=== PATIENT | male | born 1955 | race Caucasian/White ===

== ENCOUNTER 2020-07-24 13:15 | Outpatient (REF) | payer OTHER, SELFPAY ==
--- NOTE | 2020-07-24 13:14 | CT_ITS ---
EXAMINATION: CT ABDOMEN AND PELVIS WITHOUT AND WITH CONTRAST CLINICAL INFORMATION: Hematuria COMPARISON: Previous CT of the abdomen and pelvis most recent November 2019 and renal and bladder ultrasound October 2019 TECHNIQUE: Multidetector volumetric imaging was performed of the abdomen and pelvis before and after the IV administration of 85 mL of Omnipaque 300 intravenous contrast. Sagittal and coronal reformatted images were obtained on the technologist's workstation. This CT examination was performed using dose optimization techniques as appropriate, variously including the following: *Automated exposure control *Adjustment of mA and/or kV according to patient size (this includes techniques or standardized protocols for targeted exams where dose is matched to indication/reason for exam; i.e. extremities or head) *Use of iterative reconstruction technique DLP: 923 mGy-cm FINDINGS: LUNG BASES: The visualized lung bases are unremarkable. LIVER, GALLBLADDER, AND BILIARY TREE: The liver is normal in size, shape, and attenuation. No focal hepatic lesion or biliary ductal dilatation is present. The gallbladder is unremarkable with no evidence of radiopaque gallstones, gallbladder wall thickening, or obvious pericholecystic inflammatory changes. PANCREAS: Unremarkable SPLEEN: Unremarkable ADRENAL GLANDS: Unremarkable KIDNEYS AND URETERS: The kidneys are normal in size, shape, and attenuation. No hydronephrosis, hydroureter, or calculi seen. There are 2 small right renal cysts, largest measuring 1 x 1.3 cm in the lower pole. The collecting systems are normal. The ureters are normal. BLADDER: The bladder is not optimally distended. There is abnormal soft tissue seen at the base of the bladder. This may be related to the prostate gland. There is slight tenting of the dome of the bladder adjacent to the sigmoid colon. No air in the bladder is seen. GASTROINTESTINAL TRACT: There is diverticulosis of the colon. Previously identified diverticulitis on November 2019 exam is no longer seen. The soft tissue and air extending to the dome of the bladder is no longer seen. The small and large bowel are otherwise unremarkable. The appendix is unremarkable. ABDOMINAL WALL: No significant hernia is appreciated. LYMPH NODES: Normal VASCULAR: There is ectasia of the lower abdominal aorta measuring 3 x 3.3 cm and bilateral common iliac arteries measuring 1.6 cm on the right and 1.9 cm on the left. PELVIC VISCERA: The prostate gland is enlarged, measuring 5 x 6 cm in AP and transverse dimension and protrudes into the base of the bladder. OSSEOUS STRUCTURES: There are degenerative changes of the spine. IMPRESSION: Small right renal cysts. Enlarged prostate gland that protrudes into the base of the bladder. There is abnormal soft tissue at the base of the bladder presumably related to the prostate gland. There is slight tenting of the superior wall of the bladder extending to the sigmoid colon. Previously seen sigmoid diverticulitis and abnormal soft tissue and air tracking to the dome of the bladder and November 2019 is no longer seen..
== END 2020-07-24 13:16 | disposition home or self-care (01) ==
LOC: HO.CT 13:15
PROVIDERS: PCP Internal Medicine; Visit Provider Urology
DX: R31.9 Hematuria, unspecified (principal)
CPT/HCPCS: 74178

== ENCOUNTER 2020-07-29 06:09 | Day surgery (SDC) | payer OTHER, SELFPAY ==
[2020-07-25 19:29] VITALS: BMI 26.3
[2020-07-29 06:52] VITALS: BP 169/85; PULSE 55; RESP 16; TEMP 36.5; O2SAT 99
[2020-07-29] MEDS: Gentamicin Sulfate/NaCl 80 MG/100 ML PIGGYBACK 100 MG IV (07:05)
[2020-07-29] MEDS: levoFLOXacin/D5W 500 MG/100 ML PIGGYBACK 100 MG IV (07:05)
--- NOTE | 2020-07-29 07:40 | MHC.SHP ---
Pre-Procedural Eval Section A The patient is an INPATIENT: No The History & Physical has been completed within 30 days and I have reviewed it.: Yes Section B Chief Complaint: Hematuria Allergies: Allergies Allergy/AdvReac Type Severity Reaction Status Date / Time No Known Allergies Allergy Verified 07/25/20 11:55 [No Known Allergies*] Plan Diagnosis/Plan: Unchanged Patient has been examined and remains a candidate for the planned procedure
--- NOTE | 2020-07-29 08:02 | P.CONAN_ITS ---
FORM[facility]LY [facility] Past Medical History Medical History BPH (benign prostatic hyperplasia) Colovesical fistula Diverticula, colon Other obstructive and reflux uropathy Peyronie disease Structural abnormality of bladder Vesical fistula Social History Social History (Updated 07/25/20 @ 11:56 by Raissa Gamble RN) Smoking Status: Never smoker Use of substances other than those prescribed or required for medical reasons: No Have you been hit, kicked, punched, or otherwise hurt by someone within the past year? If so, by whom?: No Advance Directives: No Advance Directives Information Provided: No Advance Directives on File: No Advance Directives Date on File: 07/24/20 Meds Allergies Allergy/AdvReac Type Severity Reaction Status Date / Time No Known Allergies Allergy Verified 07/25/20 11:55 [No Known Allergies*] Home Medications Medication Instructions Recorded Confirmed Type No Known Home Meds 07/25/20 07/25/20 History Exam Exam Date and Time: July 29, 2020 0802 Height,Weight and Vital Signs: Height 6 ft 2 in Weight 92.986 kg Last Vital Signs Temp 97.7 F 07/29/20 06:52 Pulse 55 07/29/20 06:52 Resp 16 07/29/20 06:52 BP 169/85 H 07/29/20 06:52 Pulse Ox 99 07/29/20 06:52 Airway Mallampati Class: II TM Dist: >3cm Neck ROM: Full Assessment and Plan Assessment Anesthesia Assessment: Anesthesia Plan Discussed and Chart Reviewed Final Anesthetic Review NPO: Yes ASA Class: II Final Preanesthetic Review: No Changes in Pt Med Stat, Meds/Allgs Chart Reviewed, Consent Obtained/Reviewed and Anes Risks/Benef Reviewed Patient Risk: Low Procedure Risk: Low Assessment/Block/Sedation in SS: Assess/Block/Sedation-SS Anesthetic Plan Anesthetic Plan: MAC: Disposition: Standard PACU
[2020-07-29 08:10] VITALS: BP 119/63; PULSE 59; RESP 16; TEMP 36.7; O2SAT 95
--- NOTE | 2020-07-29 08:11 | PM.OP ---
Brief Operative Note Date of procedure: 07/29/20 Pre-op diagnosis: hematuria Post-op diagnosis: same Procedure: cystoscopy Surgeon: Neo Ayoub III, MD Anesthesia: MAC Pathology: none sent Condition: stable Disposition: same day
[2020-07-29 08:25] VITALS: BP 156/88; PULSE 51; RESP 17; TEMP 36.7; O2SAT 98
--- NOTE | 2020-07-29 09:22 | HO.POSTANES ---
Post Anesthesia Evaluation Post Anesthesia Evaluation Vital Signs: Vital Signs Temp Pulse Resp BP Pulse Ox 07/29/20 08:25 98.1 F 51 17 156/88 H 98 07/29/20 08:10 98.1 F 59 16 119/63 95 07/29/20 06:52 97.7 F 55 16 169/85 H 99 Anesthesia: Monitored Mental Status: Awake Pain Control: Satisfactory Nausea/Vomiting: None Hydration: Adequate Anesthesia-Related Issues: No Anes. Related Issues
--- NOTE | 2021-02-13 10:47 | OP_ITS ---
SURGEON: Neo Ayoub III, MD PREOPERATIVE DIAGNOSIS: Hematuria. POSTOPERATIVE DIAGNOSIS: Hematuria. PROCEDURE PERFORMED: Cystoscopy. ESTIMATED BLOOD LOSS: None. COMPLICATIONS: None. ANESTHESIA: MAC. ASSISTANTS: SPECIMENS: None. DESCRIPTION OF PROCEDURE: The patient was taken to the operating room. After adequate anesthesia was obtained, a time-out done demonstrating correct patient and correct procedure. Following this, the patient underwent flexible cystoscopy with retroflexion. The patient had some minute areas of erythema on the left side with no . No evidence of any papillary nature to it. Appeared to be inflammation. The patient did not have a biopsy because under flexible cystoscopy we do not have the ability to biopsy through our flexible scope, although the area in question did not appear to need a biopsy. The patient otherwise had no foreign body, stones, or mucosal lesions. No sediment. Both ureteral orifices seen effluxing clear urine. The patient tolerated procedure well with no complications. The patient had bilobar hypertrophy of the prostate. MD MARINA Swanson III/MODL / [id number]
== END 2020-07-29 09:00 | disposition home or self-care (01) ==
PROVIDERS: PCP Internal Medicine; Visit Provider Urology
PROC: 0TJB8ZZ Inspection of Bladder, Via Natural or Artificial Opening Endoscopic (ICD-10-PCS; CPT 52000; principal; 2020-07-29 07:50)
DX: R31.0 Gross hematuria (principal); Q64.79 Other congenital malformations of bladder and urethra; N40.0 Benign prostatic hyperplasia without lower urinary tract symptoms; Z87.891 Personal history of nicotine dependence
CPT/HCPCS: 52000; J1580; J1956

== ENCOUNTER → 2020-08-12 08:17 | Outpatient (BNVA) | payer OTHER, SELFPAY | PROVIDERS: PCP Internal Medicine; Referring Provider Internal Medicine; Visit Provider Urology | DX: R31.0 Gross hematuria (principal); N40.0 Benign prostatic hyperplasia without lower urinary tract symptoms; N48.6 Induration penis plastica | CPT/HCPCS: 51798; 81002 ==

== ENCOUNTER → 2021-01-22 09:21 | Outpatient (BNVA) | payer OTHER, SELFPAY | PROVIDERS: PCP Internal Medicine; Visit Provider Urology | DX: N52.01 Erectile dysfunction due to arterial insufficiency (principal); N48.6 Induration penis plastica; N40.0 Benign prostatic hyperplasia without lower urinary tract symptoms | CPT/HCPCS: 51798; 81002 ==

== ENCOUNTER 2021-07-17 12:40 | Outpatient (REF) | payer OTHER, SELFPAY ==
[2021-07-17 14:37] LABS: Prostate Specific Antigen 1.91 ng/mL (<0.05-4.0)
== END 2021-07-17 12:41 | disposition home or self-care (01) ==
LOC: HO.10HDL 12:40
PROVIDERS: Visit Provider Urology
DX: N40.1 Benign prostatic hyperplasia with lower urinary tract symptoms (principal); N13.8 Other obstructive and reflux uropathy; Z12.5 Encounter for screening for malignant neoplasm of prostate
CPT/HCPCS: 36415; 84153

== ENCOUNTER → 2021-07-21 10:06 | Outpatient (BNVA) | payer OTHER, SELFPAY | PROVIDERS: PCP Internal Medicine; Visit Provider Urology ==

== ENCOUNTER 2022-01-21 10:55 | Outpatient (REF) | payer OTHER, SELFPAY ==
--- NOTE | ~2022-01-21 | XR_ITS ---
EXAMINATION: XR RIBS, RIGHT CLINICAL INFORMATION: Right rib pain COMPARISON: None TECHNIQUE: 3 views of the right ribs and one view of the chest were obtained. FINDINGS: Lungs are clear. No consolidation, pneumothorax, or pleural effusion. The cardiomediastinal silhouette and pulmonary vasculature are normal. Osseous structures are unremarkable. Ribs are intact. No fractures are identified. XR/XR ribs RT min 3V w CXR1V IMPRESSION: Unremarkable examination.
[2022-01-21 11:33] LABS: MANUAL DIFF FLAG NO
[2022-01-21 11:57] LABS: Basophils Absolute Auto 0.1 X10*3/uL (0.0-0.2); Basophils Percent Auto 1.2 % (0-2); Eosinophils Absolute Auto 0.1 X10*3/uL (0.0-0.4); Eosinophils Percent Auto 1.4 % (0-4); Hematocrit 48.1 % (42.0-52.0); Hemoglobin 16.4 g/dl (14.0-18.0); Imm Gran Abs Auto 0.03 X10*3/uL (0.00-0.03); Imm Gran Pct Auto 0.4 % (0.0-0.4); Lymphocytes Percent Auto 24.2 % (20-40); Mean Corpuscular HGB Conc 34.1 g/dl (31.0-36.0); Mean Corpuscular Hemoglobin 32.8 pg (27.0-33.0); Mean Corpuscular Volume 96.2 fL (80.0-98.0); Mean Platelet Volume 10.6 fL (9.4-12.4); Monocytes Absolute Auto 0.9 X10*3/uL (0.1-1.2); Monocytes Percent Auto 10.4 % (2-11); Neutrophils Absolute Auto 5.2 x10*3/uL (2.0-8.3); Neutrophils Percent Auto 62.4 % (45-73); Platelet Count 267 X10*3/uL (160-400); Red Cell Distribution Width 13.7 % (11.0-16.0); White Blood Count 8.4 X10*3/uL (4.8-10.8)
[2022-01-21 12:19] LABS: Alanine Aminotransferase 24 U/L (0-40); Albumin Level 4.2 g/dL (3.5-5.0); Alkaline Phosphatase 45 U/L (39-117); Anion Gap 12 (12-20); Aspartate Amino Transferase 17 U/L (5-37); Bilirubin Total 0.9 mg/dL (0.0-1.0); Blood Urea Nitrogen 18 mg/dL (9-16); Calcium 9.6 mg/dL (8.4-10.2); Carbon Dioxide 27 mmol/L (22-29); Chloride 105 mmol/L (96-108); Cholesterol 185 mg/dL; Estimated Glomerular Filt Rate > 60; Glucose Fasting 107 mg/dL (60-99); HDL Cholesterol 47 mg/dL; LDL Cholesterol Calculated 121 mg/dl; Potassium 4.4 mmol/L (3.3-5.1); Sodium 140 mmol/L (135-145); Total Protein 7.5 g/dL (6.5-8.0); Triglycerides 86 mg/dL
== END 2022-01-21 10:56 | disposition home or self-care (01) ==
LOC: HO.LAB 10:55
PROVIDERS: PCP Internal Medicine; Visit Provider Internal Medicine
DX: Z00.00 Encounter for general adult medical examination without abnormal findings (principal); N40.0 Benign prostatic hyperplasia without lower urinary tract symptoms; R07.81 Pleurodynia
CPT/HCPCS: 36415; 71101; 80053; 80061; 85025

== ENCOUNTER 2022-09-29 12:31 | Outpatient (REF) | payer OTHER, SELFPAY ==
[2022-09-29 12:45] LABS: MANUAL DIFF FLAG NO
[2022-09-29 12:52] LABS: Basophils Absolute Auto 0.1 X10*3/uL (0.0-0.2); Basophils Percent Auto 1.5 % (0-2); Eosinophils Absolute Auto 0.2 X10*3/uL (0.0-0.4); Eosinophils Percent Auto 2.4 % (0-4); Hematocrit 47.6 % (42.0-52.0); Hemoglobin 16.4 g/dl (14.0-18.0); Imm Gran Abs Auto 0.03 X10*3/uL (0.00-0.03); Imm Gran Pct Auto 0.4 % (0.0-0.4); Lymphocytes Absolute Auto 2.7 X10*3/uL (1.2-4.9); Lymphocytes Percent Auto 31.8 % (20-40); Mean Corpuscular HGB Conc 34.5 g/dl (31.0-36.0); Mean Corpuscular Hemoglobin 31.9 pg (27.0-33.0); Mean Corpuscular Volume 92.6 fL (80.0-98.0); Mean Platelet Volume 9.8 fL (9.4-12.4); Monocytes Absolute Auto 0.7 X10*3/uL (0.1-1.2); Monocytes Percent Auto 8.5 % (2-11); Neutrophils Absolute Auto 4.7 x10*3/uL (2.0-8.3); Neutrophils Percent Auto 55.4 % (45-73); Platelet Count 262 X10*3/uL (160-400); Red Blood Count 5.14 X10*6/uL (4.60-5.80); Red Cell Distribution Width 13.6 % (11.0-16.0); White Blood Count 8.5 X10*3/uL (4.8-10.8)
[2022-09-29 15:44] LABS: Alanine Aminotransferase 23 U/L (0-40); Albumin Level 4.3 g/dL (3.5-5.0); Alkaline Phosphatase 56 U/L (39-117); Anion Gap 17 (12-20); Aspartate Amino Transferase 20 U/L (5-37); Bilirubin Total 0.4 mg/dL (0.0-1.0); Blood Urea Nitrogen 17 mg/dL (9-16); Calcium 9.9 mg/dL (8.4-10.2); Carbon Dioxide 25 mmol/L (22-29); Chloride 104 mmol/L (96-108); Cholesterol 201 mg/dL; Estimated Glomerular Filt Rate > 60; Glucose Random 85 mg/dL (60-115); HDL Cholesterol 47 mg/dL; LDL Cholesterol Calculated 120 mg/dl; Prostate Specific Antigen 1.56 ng/mL (<0.05-4.0); Sodium 141 mmol/L (135-145); Total Protein 7.6 g/dL (6.5-8.0); Triglycerides 172 mg/dL
== END 2022-09-29 12:32 | disposition home or self-care (01) ==
LOC: HO.LAB 12:31
PROVIDERS: PCP Internal Medicine; Visit Provider Urology
DX: Z12.5 Encounter for screening for malignant neoplasm of prostate (principal); N40.0 Benign prostatic hyperplasia without lower urinary tract symptoms
CPT/HCPCS: 36415; 80053; 80061; 84153; 85025

== ENCOUNTER → 2022-09-30 12:51 | Outpatient (BNVA) | payer OTHER, SELFPAY | PROVIDERS: PCP Internal Medicine; Visit Provider Urology | DX: N52.01 Erectile dysfunction due to arterial insufficiency (principal); N48.6 Induration penis plastica | CPT/HCPCS: 51798 ==

== ENCOUNTER 2023-09-28 13:39 | Outpatient (AMB) | payer OTHER, SELFPAY ==
--- NOTE | 2023-09-28 13:48 | A.OFFVIS_ITS ---
Intake Vital Signs 09/28/23 14:09 Height 6 ft 2 in Weight 200 lb 9.93 oz BMI 25.8 BP 118/74 Blood Pressure Location Lt brachial Position Sitting Pulse 63 Intake Visit Reasons: [employer]/ Croke/abn ekg Intake Note: New patient abnormal ekg on and in April heart racing and little chest pain Collar Sewer Required: No Allergies No Known Allergies [No Known Allergies*] Allergy (Verified 09/30/22 12:59) Medication List - Last Reconciled 09/28/23 by Ahmet Garcia MD No Known Home Meds HPI HPI Comments History of Present Illness Details Thank you for referring Attilio in cardiology consultation today for symptoms of chest tightness and palpitations. He is active 68-year-old male with no significant medication at this point time with no significant other risk factors of hypertension diabetes for cardiovascular disease. He does have mild hyperlipidemia with last LDL of 120 which has remained stable. Patient had 2 episodes of chest tightness along with left arm discomfort associated with racing heartbeat. First episode happened April while he was swimming in the [place] and playing around and had some drinks although not excessively as per him. He was not drawn. He then started noticing chest tightness associated with racing heartbeat. He also had discomfort in his left arm. Symptoms and says subside within 5-10 minutes. He did not pay much attention. Then again on he had the meal and some alcohol which is not excessive again he had similar symptoms. This concerned him. He measured his own pulse and noticed skipped heartbeats. He did mention it to you during the office visit at which time a perform EKG which showed normal sinus rhythm with PVCs and possibly PACs with nonspecific intraventricular conduction delay. Was referred here for further evaluation. Patient EKG today shows normal sinus rhythm with left anterior fascicular block without any PVCs with septal QS pattern. He denies any prior cardiovascular history. Denies any prolonged chest pain in the past. He said he remains pretty active and has no exertional symptoms whatsoever. 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 Mother No problems noted. Social History Comment: no count Advance Directives Date on File: 07/24/20 Review of Systems Const Denies chills, Denies daytime sleepiness, Denies fatigue, Denies fever(s), Denies frequent falls, Denies poor appetite, Denies snoring, Denies stops breathing during sleep, Denies weakness, Denies weight gain and Denies weight loss Eyes Denies loss of vision ENT Denies dizziness and Denies hearing loss Card Denies chest pain, Denies claudication, Denies leg edema, Denies lightheadedness, Denies palpitations, Denies dyspnea, Denies dyspnea on exertion and Denies orthopnea Resp Denies cough, Denies excessive phlegm production, Denies dyspnea, Denies dyspnea on exertion, Denies snoring and Denies wheezing GI Denies abdominal pain, Denies hematochezia, Denies change in bowel habits, Denies nausea and Denies vomiting Denies dysuria and Denies urinary frequency Musc Denies arthralgias, Denies muscle weakness, Denies numbness and Denies other (frequent falls) Skin/Breast Denies nail changes and Denies rash Neuro Denies Abnormal speech present, Denies dizziness, Denies frequent falls, Denies loss of vision, Denies memory loss, Denies numbness and Denies weakness Psych Denies depression and Denies memory loss Endo Denies fatigue and Denies palpitations Chris/Lymph Reports easy bruising and Reports other (anemia) Aller/Immun Denies wheezing Physical Exam Vital Signs: Last Vital Signs Pulse 63 09/28/23 14:09 BP 118/74 09/28/23 14:09 BMI result Body Mass Index 25.8 Const General: cooperative, comfortable, no acute distress, alert, awake and Physically active Nutritional Appearance: average body habitus Orientation/consciousness: patient oriented x3 Limitations: no limitations HEENT Head: Yes normocephalic and Yes atraumatic Neck Neck: Yes trachea midline, Yes supple and Yes no JVD Resp Effort & Inspection: normal respiratory effort Auscultation: clear to auscultation bilaterally Cardio Jugular venous distension: no JVD Palpation: normal PMI Rate: regular rate Rhythm: regular rhythm Heart sounds: S1 normal heart sound present, S2 normal heart sound present, no click, no gallops and Murmur heart sound present systolic early Peripheral pulses: Peripheral pulses 2+ throughout GI Auscultation: normal bowel sounds Skin General skin exam: no rashes or lesions noted Neuro General: patient oriented x3 and no focal motor deficits Speech: No Abnormal speech present Extrem General: Yes no clubbing, cyanosis or edema Psych Appearance: grossly normal Office Procedures EKG Details: EKG shows normal sinus rhythm with left anterior fascicular block with septal QS pattern 30449-[id number], Complete Assessment & Plan Assessment & Plan (1) Precordial chest pain: Code(s): R07.2 - Precordial pain Plan: Patient with symptoms of chest tightness along with palpitations and left arm discomfort in the setting of some alcohol use and exertion. Given that he was noted to have PVCs, cause of PVCs could be underlying structural heart disease. Will suggest to undergo evaluation for myocardial ischemia which is likely in his case given his age and risk factors. This was discussed with him. Suggest exercise myocardial perfusion imaging to further evaluate for the same. Also discussed about obtain echocardiogram to evaluate LV systolic and diastolic function to evaluate for other structural heart disease. This was discussed with him. Further treatment based on the findings. If his stress test within normal limits given his age and risk factors can consider coronary calcium score to further evaluate for presence of coronary atherosclerosis that may require more intense treatment for hyperlipidemia. (2) Palpitations: Code(s): R00.2 - Palpitations Plan: Patient's symptoms palpitations most likely related to isolated PVCs. Need to assess for structural heart disease as above. Also need to evaluate for frequency of PVCs. At current time advised to avoid stimulants such as excessive caffeine and alcohol use. Also stress mitigation strategies were discussed. If he has infrequent PVCs with normal structure of the heart I would recommend no further pharmacotherapy. This was discussed with him. Follow up in the clinic in 6 weeks time, sooner p.r.n.. Thank you for allowing me to partake in his care Coding Level of Care Code New Pt Level 4 (61482) Diagnoses Precordial chest pain R07.2 Palpitations R00.2 CPT Codes EKG - CPT: 82753-[id number], Complete ([id number])
[2023-09-28 14:09] VITALS: BP 118/74; PULSE 63; BMI 25.8
== END 2023-09-28 14:44 | disposition home or self-care (01) ==
PROVIDERS: PCP Internal Medicine; Visit Provider Internal Medicine Cardiovascular Disease
DX: R07.2 Precordial pain (principal); R00.2 Palpitations
CPT/HCPCS: 93010; 99204

== ENCOUNTER → 2023-09-28 13:39 | Outpatient (BNVA) | payer OTHER, SELFPAY | PROVIDERS: PCP Internal Medicine; Visit Provider Internal Medicine Cardiovascular Disease | DX: R07.2 Precordial pain (principal); R00.2 Palpitations | CPT/HCPCS: 93005 ==

== ENCOUNTER 2023-09-30 12:47 | Outpatient (AMB) | payer OTHER, SELFPAY ==
--- NOTE | 2023-09-30 13:04 | MHC.OFFVIS ---
Intake Intake Visit Reasons: 1yr follow up Intake Note: Patient is Present for Follow Up Urology Medication: None Antibiotic Allergies:None Blood Thinners: None PVR: 0 Allergies No Known Allergies [No Known Allergies*] Allergy (Verified 09/30/23 13:09) HPI HPI Comments History of Present Illness Details Chacha is a pleasant [place] male. He is seen for the following urologic conditions - Peyronie's disease - erectile dysfunction Admits he has not been consistent with tadalafil 10 mg daily Would prefer to try that again along with 100 mg sildenafil on demand Peyronie stable Retrial ED medications with 3 month follow-up Peyronie's disease Stable disease Does not interfere with intercourse Does use PD 5 inhibitors - prior success with Viagra not effective currently - will change to tadalafil daily - prescription provided PSA 08/06 1.9, 10/07 1.6 Erectile dysfunction Inability to maintain erection Good response to tadalafil daily 10mg with 20mg on demand Prior colovesical fistula Presentation with gross hematuria Underwent repair [facility] Medical History 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 Mother No problems noted. Social History Comment: no count Advance Directives Date on File: 07/24/20 Review of Systems Const Denies chills and Denies fever(s) Card Reports no additional complaints and Denies syncope Resp Denies cough GI Denies abdominal pain and Denies heartburn Reports as per HPI and Denies change in libido Neuro Denies syncope Psych Denies change in libido Endo Denies change in libido Physical Exam Const General: cooperative, healthy appearing, comfortable and no acute distress Orientation/consciousness: patient oriented x3 HEENT Face and sinus: Yes normal facial exam Mouth: moist mucous membranes Neck Neck: Yes normal visual inspection, Yes full ROM and Yes trachea midline Chest Chest palpation & inspection: normal inspection of the chest Resp Effort & Inspection: normal respiratory effort, able to speak in complete sentences and no respiratory distress GI Inspection: Yes normal to inspection Back/Spine/Pelvis Cervical Spine: normal cervical lordosis Thoracic/Lumbar Spine: thoracic and lumbar spine normal to inspection Skin General skin exam: no rashes or lesions noted Neuro General: patient oriented x3, gait normal, tone normal and moves all extremities Extrem General: Yes normal to inspection and Yes capillary refill normal Office Procedures Post Void Residual Post Residual Void Post Void Residual (PVR): 0 [id number]-[id number] Void Residual by ultrasound Assessment & Plan Assessment & Plan (1) Erectile dysfunction due to arterial insufficiency: Code(s): N52.01 - Erectile dysfunction due to arterial insufficiency (2) Peyronie disease: Code(s): N48.6 - Induration penis plastica Plan Three month follow-up Orders: Orders AMB Post Void Residual by ultrasound Today N40.0 - Benign prostatic hyperplasia without lower urinary tract symptoms Medications: New sildenafil administer 60 minutes before intended activity 100 mg PO ONCE PRN 30 tabs 1RF sexual activity 30 days N52.01 - Erectile dysfunction due to arterial insufficiency tadalafil 10 mg PO DAILY 90 tabs 0RF sexual activity 90 days N52.01 - Erectile dysfunction due to arterial insufficiency Patient Instructions: Imaging studies, laboratory and physical exam results were discussed and reviewed in detail. No major barriers to patient understanding were identified. An opportunity to ask questions regarding the treatment plan was provided. All questions were answered. The patient expressed understanding and agreement with the above treatment plan. The patient is aware they should contact our office by phone for worsening of their current condition or the appearance of new urologic symptoms. Compliance is encouraged with any medications and followup testing that is ordered. It is a privilege to participate in the urologic care of your patient. If you have any questions or concerns regarding treatment for the above conditions, or other urologic issues, please do not hesitate to contact me. The office telephone contact is [phone]. This note is constructed using voice recognition software. While every effort has been made to ensure accuracy metal weather stripper errors may have been included. Yours sincerely, Dr Jake Marcos MD, [facility] - Urology Providers of Expert, Compassionate Care for the Genitourinary System Coding Level of Care Code Est Pt Level 4 (93000) Diagnoses Erectile dysfunction due to arterial insufficiency N52.01 Peyronie disease N48.6 CPT Codes Post Residual Void - PVR CPT Code: 30202-Ispm Void Residual by ultrasound ([id number])
== END 2023-09-30 13:44 | disposition home or self-care (01) ==
PROVIDERS: Visit Provider Urology
DX: N52.01 Erectile dysfunction due to arterial insufficiency (principal); N48.6 Induration penis plastica
CPT/HCPCS: 99214

== ENCOUNTER → 2023-09-30 12:47 | Outpatient (BNVA) | payer OTHER, SELFPAY | PROVIDERS: Visit Provider Urology | DX: N52.01 Erectile dysfunction due to arterial insufficiency (principal); N48.6 Induration penis plastica | CPT/HCPCS: 51798 ==

== ENCOUNTER 2023-10-04 11:53 | Outpatient (REF) | payer OTHER, SELFPAY ==
[2023-10-04 12:07] LABS: MANUAL DIFF FLAG NO
[2023-10-04 12:27] LABS: Basophils Absolute Auto 0.1 X10*3/uL (0.0-0.2); Basophils Percent Auto 1.2 % (0-2); Eosinophils Absolute Auto 0.1 X10*3/uL (0.0-0.4); Eosinophils Percent Auto 1.6 % (0-4); Hematocrit 49.5 % (42.0-52.0); Hemoglobin 16.8 g/dl (14.0-18.0); Imm Gran Abs Auto 0.02 X10*3/uL (0.00-0.03); Imm Gran Pct Auto 0.3 % (0.0-0.4); Lymphocytes Absolute Auto 2.4 X10*3/uL (1.2-4.9); Lymphocytes Percent Auto 30.4 % (20-40); Mean Corpuscular HGB Conc 33.9 g/dl (31.0-36.0); Mean Corpuscular Hemoglobin 31.5 pg (27.0-33.0); Mean Corpuscular Volume 92.7 fL (80.0-98.0); Mean Platelet Volume 10.4 fL (9.4-12.4); Monocytes Absolute Auto 0.7 X10*3/uL (0.1-1.2); Monocytes Percent Auto 8.7 % (2-11); Neutrophils Absolute Auto 4.5 x10*3/uL (2.0-8.3); Neutrophils Percent Auto 57.8 % (45-73); Platelet Count 234 X10*3/uL (160-400); Red Blood Count 5.34 X10*6/uL (4.60-5.80); Red Cell Distribution Width 13.2 % (11.0-16.0); White Blood Count 7.7 X10*3/uL (4.8-10.8)
[2023-10-04 13:06] LABS: Alanine Aminotransferase 25 U/L (0-40); Albumin Level 4.3 g/dL (3.5-5.0); Alkaline Phosphatase 54 U/L (39-117); Anion Gap 13 (12-20); Aspartate Amino Transferase 17 U/L (5-37); Bilirubin Total 0.7 mg/dL (0.0-1.0); Blood Urea Nitrogen 12 mg/dL (9-16); Calcium 9.6 mg/dL (8.4-10.2); Carbon Dioxide 28 mmol/L (22-29); Chloride 105 mmol/L (96-108); Cholesterol 185 mg/dL (<200); Estimated Glomerular Filt Rate > 60; Glucose Fasting 89 mg/dL (60-99); HDL Cholesterol 49 mg/dL (>40); LDL Cholesterol Calculated 116 mg/dL (<100); Potassium 4.1 mmol/L (3.3-5.1); Sodium 142 mmol/L (135-145); Triglycerides 103 mg/dL (<150)
[2023-10-04 13:29] LABS: Prostate Specific Antigen Scr 1.47 ng/mL (<0.05-4.0)
[2023-10-04 13:30] LABS: Thyroid Stimulating Hormone 1.61 uIU/mL (0.32-4.0)
== END 2023-10-04 11:54 | disposition home or self-care (01) ==
LOC: HO.LAB 11:53
PROVIDERS: PCP Internal Medicine; Visit Provider Internal Medicine
DX: Z12.5 Encounter for screening for malignant neoplasm of prostate (principal); R00.2 Palpitations; N40.0 Benign prostatic hyperplasia without lower urinary tract symptoms; K57.90 Diverticulosis of intestine, part unspecified, without perforation or abscess without bleeding; R10.9 Unspecified abdominal pain
CPT/HCPCS: 36415; 80053; 80061; 84153; 84439; 84443; 85025

== ENCOUNTER → 2023-10-12 12:53 | Outpatient (REF) | payer OTHER, SELFPAY ==
--- NOTE | 2023-10-12 12:57 | CA_ITS ---
Transthoracic Echocardiogram Patient (Last, First, Middle): Chacha Eid R Gender: Male Date of : 1955 Age: 68 Procedure Date: 10/12/2023 Procedure Type: Transthoracic Echocardiogram Location: OP Height: 187.96 cm Weight: 93.9 kg BSA: 2.21 m2 Heart Rate: bpm BP: 130 / 70 mmHg [place] Sewer: TO Referring MD: Ahmet Garcia MD Symptoms: R07.2 - Precordial pain Study Quality: Adequate Conclusions: - The left ventricular systolic function is normal. The visually estimated ejection fraction is between 55-60%. - The basal inferolateral segment is akinetic. - The basal inferior segment is hypokinetic. - There is mild mitral annular calcification. - There is mild calcification of the aortic valve. Findings Left Ventricle Normal left ventricular cavity size. The left ventricular systolic function is normal. The visually estimated ejection fraction is between 55-60%. There is evidence of regional wall motion abnormalities. Diastolic function is normal for age. There is mild septal asymmetric hypertrophy. LV peak GLS -21%. Wall Motion Rest Echo Findings The basal inferior segment is hypokinetic. The basal inferolateral segment is akinetic. Right Ventricle Normal right ventricular cavity size and systolic function. Atria Both atria are normal in size. Aortic Valve There is a normal trileaflet aortic valve. There is mild calcification of the aortic valve. There is no aortic valve stenosis. There is no aortic valve regurgitation. Mitral Valve There is mild mitral annular calcification. There is no mitral valve regurgitation. There is no mitral valve stenosis. Pulmonic Valve The pulmonic valve is likely normal. Tricuspid Valve Normal tricuspid valve structure. There is trace tricuspid valve regurgitation. There is no evidence of pulmonary hypertension. Great Vessels The asc aorta is normal in size. There is mild dilatation of the sinuses of Valsalva measuring 4.01 cm. Venous The inferior vena cava is normal in size and collapses greater than 50% with inspiration. Pericardium/Pleural There is no evidence of pericardial effusion. Prior Study Comparison No prior study available for comparison. Measurements 2D Linear Measurements IVSd: 1.13 0.6-0.9/0.6-1.0 cm LVIDd: 4.77 3.9-5.3/4.2-5.9 cm LVIDd Index: 2.16 2.4-3.2/2.2-3.1 cm/m2 LVIDs: 3.39 2.0-3.6 cm LVPWd: 0.81 0.7-1.1 cm LA Diam: 3.60 2.7-3.8/3.0-4.0 cm LAIDs Index: 1.63 1.5-2.3 cm/m2 LV Mass: 201.18 67-162/88-224 g LV Mass Index: 91.03 43-95/49-115 g/m2 LVOT Diam: 2.20 3.0+(-)1.3 cm 2D Systolic Function EF 4C: 58.80 >55% EF 2C: 60.50 >55% EF BiP: 59.50 >55% Mitral Valve MV Pk E: 0.42 MV PK A: 0.55 MV Decel Time: 293.00 E/A: 0.80 E'Lateral: 9.46 E'Medial: 4.79 E/E' Med: 8.80 E/E' Lat: 4.40 PHT: 86.00 MVA PHT: 2.56 Decel [place]: 1.43 Aortic Valve AoV Pk Eh: 1.36 AoV Mn Eh: 1.01 AoV VTI: 0.26 AoV Pk Grad: 7.00 Aov Mn Grad: 4.00 MADISYN Cont.VTI: 3.45 LVOT LVOT Pk Eh: 1.11 LVOT Mn Eh: 0.72 LVOT VTI: 0.24 LVOT Pk Grad: 5.00 LVOT Mn Grad: 2.00 LVOT Diam: 2.20 LVOT Area: 3.80 Diastolic Function MV Pk E: 0.42 MV Pk A: 0.55 E/A: 0.80 E'Medial: 4.79 E/E' Med: 8.80 E' Laterial: 9.46 E/E' Lat: 4.40 Right Ventricle TAPSE (mm): 30.40 TVS' Eh: 14.70 Tricuspid Valve RA Press: 3.00 Great Vessels Aorta Sinus of Valsalva: 4.01 2.0-3.5 cm Ao Asc: 3.60 2.1-3.4 cm Updated in Other Vendor System with Status of Final Allan Knox MD electronically signed on 10/14/2023 11:59:45 AM with status of Final
--- NOTE | 2023-10-12 12:57 | HM_ITS ---
* Total monitoring time 14 days. * Underlying rhythm is sinus with an average rate of 56/Min. Range 40 to 127/Min. * About 72% of the time, rate less than 60/Min. * Frequent ventricular ectopy with a burden of 2.1%. 2 morphologies. Several couplets, few triplets. Evidence of bigeminy/trigeminy. About 35 runs noted. Longest 11 beats. Maximum rate 210/Min. Mostly unifocal appearing runs. * Frequent supraventricular ectopy with a burden of 2.9%. Very brief runs. * No significant pauses or AV blocks. * Patient markers seen in association with sinus rhythm, supraventricular and ventricular ectopy. * No diary events. MTDD
== END ==
LOC: HO.CARD 12:53
PROVIDERS: Absent Provider Internal Medicine Cardiovascular Disease; PCP Internal Medicine; Visit Provider Internal Medicine
DX: R00.2 Palpitations (principal); R07.2 Precordial pain
CPT/HCPCS: 93246; 93306; 93356

== ENCOUNTER → 2023-10-12 12:57 | Outpatient (BNV) | payer OTHER, SELFPAY | PROVIDERS: Absent Provider Internal Medicine Cardiovascular Disease; PCP Internal Medicine; Visit Provider Internal Medicine | DX: I47.10 Supraventricular tachycardia, unspecified (principal) | CPT/HCPCS: 93248; 93306 ==

== ENCOUNTER → 2023-10-20 08:41 | Outpatient (REF) | payer OTHER, SELFPAY ==
--- NOTE | ~2023-10-20 | NM_ITS ---
Lexiscan Myocardial perfusion study Indication: Chest pain, assess for coronary disease and ischemia Technique: The patient was brought in for a Lexiscan perfusion study on 10/20/2023 and was injected 0.4 mg of Lexiscan intravenously. Within a minute of this injection 30 mCi of sestamibi was given intravenously. Images were obtained using the SPECT gamma camera interlaced with the gating device. Images were obtained in supine position. Resting perfusion study was performed on 10/26/2023. Patient was administered 30 mCi of sestamibi intravenously at rest. Images were then obtained in supine position. Images were processed with the software and compared side to side in short axis, horizontal long axis and vertical long axis views. Total DLP not available due to technical issues. Findings: Raw acquisition reviewed. The stress perfusion study showed diminished tracer uptake along most of the inferior wall. There is improvement with CT attenuation correction suggestive of components of diaphragmatic attenuation artifact. The gated study shows normal LV systolic function with calculated LVEF of 61%. LV cavity is normal in size. The gated study shows inferior hypokinesis. Resting study shows diminished tracer uptake along the inferior wall. There is improvement with CT attenuation correction seen just to of components of diaphragmatic attenuation artifact. Gating at rest reveals reduced inferior wall thickening with an EF 59%. The findings are consistent with fixed basal inferior defect with some reversibility during CT attenuation correction. NM/NM cardiolite stress test Impression: 1. Myocardial perfusion imaging study shows no clear evidence of ischemia. Suspect prior nontransmural infarct inferior wall +/-diaphragmatic attenuation artifact. 2. Gated LVEF is 61% during stress and 59% during rest. 3. Transient ischemic dilatation not present. EKG component of the test reported separately.
== END ==
LOC: HO.CARD 08:41
PROVIDERS: PCP Internal Medicine; Visit Provider Internal Medicine Cardiovascular Disease
DX: R07.2 Precordial pain (principal)
CPT/HCPCS: 78452; 93017; A9500; J0280; J2785

== ENCOUNTER → 2023-10-20 08:43 | Outpatient (BNV) | payer OTHER, SELFPAY | PROVIDERS: PCP Internal Medicine; Visit Provider Nurse Practitioner | DX: R07.2 Precordial pain (principal); R06.02 Shortness of breath | CPT/HCPCS: 78452; 93016; 93018 ==

== ENCOUNTER 2023-10-28 12:18 | Outpatient (AMB) | payer OTHER, SELFPAY ==
--- NOTE | 2023-10-28 12:34 | MHC.OFFVIS ---
Intake Vital Signs 10/28/23 12:35 Height 6 ft 2 in Weight 205 lb 0.478 oz BMI 26.3 BP 120/66 Blood Pressure Location Lt brachial Position Sitting Pulse 66 Intake Visit Reasons: follow-up holter results Intake Note: Follow-up with holter results feeling good Chief Fundraising Officer Required: No Allergies No Known Allergies [No Known Allergies*] Allergy (Verified 09/30/23 13:09) Medication List - Last Reconciled 10/28/23 by Ahmet Garcia MD sildenafil 100 mg PO ONCE PRN 30 days HPI HPI Comments History of Present Illness Details Chacha comes for follow-up. His Holter monitor is very abnormal showing multiple runs of monomorphic nonsustained ventricular tachycardia. He had no symptoms during the ventricular tachycardia but at symptoms with PVCs and PACs. He has frequent PVCs. Echocardiogram shows normal LV ejection fraction but shows basal inferolateral and inferior wall motion abnormality. Since I saw him he has had no recurrent symptoms. Denies any symptoms of chest tightness or palpitations or lightheadedness. No syncopal episodes. 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 Mother No problems noted. Social History Comment: no count Advance Directives Date on File: 07/24/20 Review of Systems Const Denies chills, Denies fatigue, Denies fever(s), Denies frequent falls, Denies weakness, Denies weight gain and Denies weight loss ENT Denies dizziness Card Denies chest pain, Denies leg edema, Denies lightheadedness, Denies palpitations, Denies dyspnea, Denies dyspnea on exertion, Denies orthopnea and Denies other (loss of consciousness) Resp Denies cough, Denies dyspnea and Denies dyspnea on exertion GI Denies hematochezia and Denies change in stool character Musc Denies abnormal gait, Denies muscle weakness, Denies numbness, Denies radiating pain into limb and Denies tingling Neuro Denies Abnormal speech present, Denies abnormal gait, Denies dizziness, Denies frequent falls, Denies numbness, Denies tingling and Denies weakness Endo Denies fatigue and Denies palpitations Physical Exam Vital Signs: Last Vital Signs Pulse 66 10/28/23 12:35 BP 120/66 10/28/23 12:35 BMI result Body Mass Index 26.3 Const General: cooperative, comfortable, no acute distress, alert, awake and Physically active Nutritional Appearance: average body habitus Orientation/consciousness: patient oriented x3 Limitations: no limitations HEENT Head: Yes normocephalic and Yes atraumatic Neck Neck: Yes trachea midline, Yes supple and Yes no JVD Resp Effort & Inspection: normal respiratory effort Auscultation: clear to auscultation bilaterally Cardio Jugular venous distension: no JVD Palpation: normal PMI Rate: regular rate Rhythm: regular rhythm Heart sounds: S1 normal heart sound present, S2 normal heart sound present, no click, no gallops and Murmur heart sound present systolic early Peripheral pulses: Peripheral pulses 2+ throughout GI Auscultation: normal bowel sounds Skin General skin exam: no rashes or lesions noted Neuro General: patient oriented x3 and no focal motor deficits Speech: No Abnormal speech present Extrem General: Yes no clubbing, cyanosis or edema Psych Appearance: grossly normal Office Procedures EKG Details: EKG shows normal sinus rhythm with left anterior fascicular block with QS pattern in lead V1 V2 [id number], Complete Assessment & Plan Assessment & Plan (1) CAD (coronary artery disease): Code(s): I25.10 - Atherosclerotic heart disease of [place] coronary artery without angina pectoris Plan: Patient with Holter monitor showing frequent runs of nonsustained ventricular tachycardia, monomorphic with echocardiogram findings suggestive of underlying coronary artery disease. He had symptomatic chest tightness with prolonged palpitation lightheadedness which is concerning for significant coronary artery disease. We discussed about management. I thing 1st I would like to determine extent of coronary artery disease. Recommend cardiac catheterization to evaluate for coronary anatomy. Explained the risks, benefits, alternatives and details of the procedure possible outcomes. He understands agrees. Discussed with his as well. Meanwhile I have advised him to stop his sildenafil. Also advised to avoid any significant exertional activity. Advised to seek emergency care for sudden symptoms. Will start him on low-dose aspirin as well as Toprol-XL 50 mg daily and statins, rosuvastatin 40 mg daily. Further treatment based on finding of cardiac catheterization which will be scheduled in near future. Will follow up in the clinic after cardiac catheterization. Thank you for allowing me to partake in his care Orders: Orders Prothrombin Time INR Today I25.10 - Atherosclerotic heart disease of [place] coronary artery without angina pectoris Basic Metabolic Panel Today I25.10 - Atherosclerotic heart disease of [place] coronary artery without angina pectoris Complete Blood Count no Diff Today I25.10 - Atherosclerotic heart disease of [place] coronary artery without angina pectoris Cardiac Cath LT w PCI 4 Days I25.10 - Atherosclerotic heart disease of [place] coronary artery without angina pectoris Medications: New aspirin (Ecotrin Low Strength) 81 mg PO DAILY 30 tabs 2RF rosuvastatin (Crestor) 40 mg PO DAILY 30 tabs 3RF metoprolol succinate ER (Toprol XL) 50 mg PO DAILY 30 tabs 2RF Discontinued sildenafil administer 60 minutes before intended activity Discontinued Reason: None 100 mg PO ONCE 30 days PRN 30 tabs 1RF sexual activity N52.01 - Erectile dysfunction due to arterial insufficiency Coding Level of Care Code Est Pt Level 4 (60917) Diagnoses CAD (coronary artery disease) I25.10 CPT Codes EKG - CPT: [id number], Complete ([id number])
[2023-10-28 12:35] VITALS: BP 120/66; PULSE 66; BMI 26.3
== END 2023-10-28 13:50 | disposition home or self-care (01) ==
PROVIDERS: PCP Internal Medicine; Visit Provider Internal Medicine Cardiovascular Disease
DX: I25.10 Atherosclerotic heart disease of native coronary artery without angina pectoris (principal)
CPT/HCPCS: 93010; 99214

== ENCOUNTER 2023-10-28 12:18 | Outpatient (REF) | payer OTHER, SELFPAY ==
[2023-10-28 13:31] LABS: Hematocrit 44.2 % (42.0-52.0); Hemoglobin 15.3 g/dl (14.0-18.0); Mean Corpuscular HGB Conc 34.6 g/dl (31.0-36.0); Mean Corpuscular Hemoglobin 32.3 pg (27.0-33.0); Mean Corpuscular Volume 93.4 fL (80.0-98.0); Mean Platelet Volume 10.3 fL (9.4-12.4); Platelet Count 222 X10*3/uL (160-400); Red Blood Count 4.73 X10*6/uL (4.60-5.80); Red Cell Distribution Width 13.2 % (11.0-16.0); White Blood Count 7.5 X10*3/uL (4.8-10.8)
[2023-10-28 14:20] LABS: INTERNATIONAL NORM RATIO 0.9 (0.9-1.1); Prothrombin Time 11.3 SEC (11.1-13.3)
[2023-10-28 14:33] LABS: Anion Gap 11 (12-20); Blood Urea Nitrogen 20 mg/dL (9-16); Calcium 9.6 mg/dL (8.4-10.2); Carbon Dioxide 29 mmol/L (22-29); Chloride 105 mmol/L (96-108); Estimated Glomerular Filt Rate > 60; Glucose Random 85 mg/dL (60-115); Potassium 4.3 mmol/L (3.3-5.1); Sodium 141 mmol/L (135-145)
== END 2023-10-28 12:19 | disposition home or self-care (01) ==
LOC: HO.LAB 12:18
PROVIDERS: PCP Internal Medicine; Visit Provider Internal Medicine Cardiovascular Disease
DX: I25.10 Atherosclerotic heart disease of native coronary artery without angina pectoris (principal)
CPT/HCPCS: 36415; 80048; 85027; 85610; 93005

== ENCOUNTER → 2023-11-01 23:59 | Outpatient (BNV) | payer OTHER, SELFPAY | PROVIDERS: PCP Internal Medicine; Visit Provider Internal Medicine Cardiovascular Disease | DX: I36.1 Nonrheumatic tricuspid (valve) insufficiency (principal) | CPT/HCPCS: 93460; 99152 ==

== ENCOUNTER 2023-11-18 22:53 | Emergency (ER) | payer OTHER, SELFPAY ==
[2023-11-18 23:05] VITALS: BP 99/69; PULSE 57; RESP 18
--- NOTE | 2023-11-18 23:10 | ED.ALLEREA ---
HPI - Allergic Reaction General Chief complaint: Allergic Reaction Stated complaint: Allergic Reaction/Swollen Face Time Seen by Provider: 11/18/23 23:09 Source: patient and family () Mode of arrival: ambulatory Limitations: no limitations History of Present Illness HPI narrative: 68-year-old male with a history of coronary disease, BPH, coronary disease, palpitations (nonsustained ventricular tachycardia, PACs and PVCs) who presents emergency department for evaluation of allergic reaction. The patient is followed by our monogram machine operator, Dr. Garcia and had a recent angiogram for evaluation of coronary artery disease (patient does not know the result is angiogram). The patient states that he ate two hot dogs with horseradish at around 19:00. He went to sleep and then woke up at 2100 hours with pruritic rash over his entire body, swelling of her lower lips as well as his tongue, change in his voice without difficulty swallowing. He denies chest pain, shortness of breath, dyspnea on exertion, , lightheaded or dizziness. The patient had a cardiac catheterization on 11/01/2023 and the states that the patient was started on medications prior to this procedure. I did review his cardiology note on 10/28/2023 and the was taking aspirin, rosuvastatin and metoprolol ER. The told the triage nurse that the patient was taking lisinopril however I do not think that he is on this medication. The following was obtained from Dr. Garcia's note on 10/28/2023: Holter monitor showing frequent runs of nonsustained ventricular tachycardia, monomorphic with echocardiogram findings suggestive of underlying coronary artery disease. He had symptomatic chest tightness with prolonged palpitation lightheadedness which is concerning for significant coronary artery disease. and Echocardiogram shows normal LV ejection fraction but shows basal inferolateral and inferior wall motion abnormality. Related Data Previous Rx's Medication Instructions Recorded aspirin 81 mg tablet,delayed 81 mg PO DAILY #30 tabs 10/28/23 release (Ecotrin Low Strength) metoprolol succinate 50 mg 50 mg PO DAILY #30 tabs 10/28/23 tablet,extended release 24 hr (Toprol XL) rosuvastatin 40 mg tablet (Crestor) 40 mg PO DAILY #30 tabs 10/28/23 epinephrine 0.3 mg/0.3 mL 0.3 mg (0.3 mL) IM Q10M PRN 11/19/23 injection, auto-injector (EpiPen anaphylaxis #2 ea 2-Ralph) prednisone 20 mg tablet 60 mg (3 x 20 mg) PO DAILY 5 days 11/19/23 #15 tabs Allergies Allergy/AdvReac Type Severity Reaction Status Date / Time No Known Allergies Allergy Verified 11/18/23 23:10 [No Known Allergies*] Review of Systems Review of Systems: Yes all other systems are reviewed and are negative [facility] Past Medical History [facility] Narrative: Social history: Patient is . States he drinks 1 glass of wine with dinner. 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 Mother No problems noted. Social History Social History Comment: no count Smoked in Last 30 Days: No Advance Directives: Yes Advance Directives on File: Yes Advance Directives Date on File: 07/24/20 Physical Exam ED Vital Signs: Vital Signs - 24 hr 11/18/23 23:05 11/18/23 23:14 11/18/23 23:25 Pulse Rate 57 57 56 Respiratory Rate 18 18 Blood Pressure 99/69 99/69 106/53 L Pulse Oximetry 92 Oxygen Delivery Method Room Air 11/18/23 23:30 11/18/23 23:31 Pulse Rate 61 69 Respiratory Rate 18 Blood Pressure 106/53 L 144/60 H Pulse Oximetry 94 Oxygen Delivery Method Room Air BMI result Body Mass Index 26.7 Vital signs were no Exam General: Awake, patient has significant swelling of his upper and lower lip as well as his tongue, the patient is able to open his mouth widely and has no difficulty swallowing his secretions. Patient does have a muffled/hoarse voice Head: Normocephalic, atraumatic EENT: PERRL, angioedema of the upper and lower lip, tongue swell-able to visualize posterior pharynx, able to open mouth , sclera normal, conjunctiva normal, nose normal , ears normal, Neck: Supple, no adenopathy Lung: breath sounds symmetric, no wheezing, rales or rhonchi Chest: symmetric movement, nontender Heart: regular rate and rhythm, normal S1, S2 no murmurs or rubs Abdomen: soft, non-tender, nondistended, normal bowel sounds Back: no vertebral tenderness, no CVAT Extremities: no deformities, moves all extremities symmetrically Skin: Patient has a diffuse erythematous urticarial rash on his arms chest and back Neuro: Awake, alert, oriented, muffled voice, cranial nerves intact, moves all extremities symmetrically Psych: Pleasant, cooperative Medications Administered Discontinued Medications Generic Name Dose Route Start Last Admin Trade Name Freq PRN Reason Stop Dose Admin Diphenhydramine HCl 50 mg 11/18/23 23:10 11/18/23 23:20 Diphenhydramine Hcl 50 Mg/Ml Vial IVPUSH 11/18/23 23:11 50 mg ONCE STA Administration Epinephrine 0.3 mg 11/18/23 23:10 11/18/23 23:14 Epinephrine 1 Mg/Ml Vial IM 11/18/23 23:11 0.3 mg STAT STA Administration Epinephrine 0.3 mg 11/18/23 23:26 11/18/23 23:30 Epinephrine 1 Mg/Ml Vial IM 11/18/23 23:27 0.3 mg STAT STA Administration Famotidine 20 mg 11/18/23 23:10 11/18/23 23:25 Famotidine/Pf 20 Mg/2 Ml Vial IVPUSH 11/18/23 23:11 20 mg ONCE ONE Administration Sodium Chloride 1,000 mls @ 999 mls/hr 11/18/23 23:24 11/18/23 23:30 Ns IV 11/19/23 00:24 999 mls/hr .Q1H1M STA Administration Methylprednisolone Sodium Succinate 125 mg 11/18/23 23:10 11/18/23 23:18 Methylprednisolone Sod Succ 125 Mg/2 Ml Vial IVPUSH 11/18/23 23:11 125 mg ONCE ONE Administration Medical Decision Making Medical Decision Making MDM Narrative: 68-year-old male with a history of coronary disease, BPH, coronary disease, palpitations (nonsustained ventricular tachycardia, PACs and PVCs) who presents emergency department for evaluation of allergic reaction most likely secondary who food allergy (hot dogs with hoarseradish. Patient presents with pruritic rash over his entire body, swelling of her lower lips , tongue, and muffled voice with no difficulty swallowing his secretions, no lightheadedness dizziness or shortness of breath. Patient had cardiac catheterization on 11/01/2023 and prior to that was started on metoprolol, rosuvastatin and aspirin. Vital signs were unremarkable, O2 saturation was 92-94% on room air. Exam is consistent with anaphylaxis/allergic reaction with upper, lower lip and tongue angioedema. Differential diagnosis: Includes but is not limited to allergic reaction, anaphylaxis, angioedema Patient was treated with epinephrine 0.3 mg IM Q 5 minutes x2 doses Benadryl 50 mg IV, Solu-Medrol 125 mg IV , Pepcid 20 mg IV and normal saline x1 L Following evaluation was ordered: CBC, CMP, 12 EKG, IV insert, cardiac monitoring, O2 saturation monitor 23:56 Start physician observation The patient will need to be on a cardiac and O2 saturation monitor for at least 4 hours( until 03:30 hrs) to make sure he does not have a rebound allergic reaction therefore he will be placed in physician observation 02:00 Patient's laboratory evaluation was unremarkable except for elevation in his AST and ALT above his baseline which could be secondary to his alcohol use or secondary to rosuvastatin. I did discuss this with the patient The patient is feeling significantly better, his rash is completely resolved, his angioedema of the lips has improved but is still present, patient tongue is still enlarged but is improved as well. At the end of my shift the patient still needs to be observed until 03:30 hours to make sure he does not have a rebound reaction, therefore patient's care was turned over to my colleague, Dr. Mcconnell. Admission/Observation Consideration of admission/observation: Escalation of care including admission/observation considered Lab Data MDM Lab Attestation statement: I reviewed the patient's lab results. My interpretation patient's laboratory evaluation as follows: WBC elevated 12,900. Glucose elevated 138. AST and ALT are elevated 260 and 300-this is newly-this is newly elevator this is newly elevated compared to previous value. 11/19/23 00:32 11/19/23 00:32 Labs: Lab Results 11/19/23 Range/Units 00:32 WBC 12.9 H (4.8-10.8) X10*3/uL RBC 4.83 (4.60-5.80) X10*6/uL Hgb 15.5 (14.0-18.0) g/dl Hct 44.2 (42.0-52.0) % MCV 91.5 (80.0-98.0) fL MCH 32.1 (27.0-33.0) pg MCHC 35.1 (31.0-36.0) g/dl RDW 13.2 (11.0-16.0) % Plt Count 223 (160-400) X10*3/uL MPV 10.0 (9.4-12.4) fL Immature Gran % (Auto) 0.3 (0.0-0.4) % Neut % (Auto) 67.2 (45-73) % Lymph % (Auto) 25.6 (20-40) % [place] % (Auto) 5.2 (2-11) % Eos % (Auto) 0.5 (0-4) % Baso % (Auto) 1.2 (0-2) % Lymph # (Auto) 3.3 (1.2-4.9) X10*3/uL [place] # (Auto) 0.7 (0.1-1.2) X10*3/uL Eos # (Auto) 0.1 (0.0-0.4) X10*3/uL Baso # (Auto) 0.2 (0.0-0.2) X10*3/uL Abs Immat Gran (auto) 0.04 H (0.00-0.03) X10*3/uL Absolute Neuts (auto) 8.7 H (2.0-8.3) x10*3/uL Absolute Nucleated RBC 0.000 (0.0-0.012) X10*3/uL Nucleated RBC % (auto) 0.0 (0.0-0.2) /100WBC Sodium 141 (135-145) mmol/L Potassium 4.3 (3.3-5.1) mmol/L Chloride 108 (96-108) mmol/L Carbon Dioxide 25 (22-29) mmol/L Anion Gap 12 (12-20) BUN 24 H (9-16) mg/dL Creatinine 1.31 (0.5-1.4) mg/dL Estim Creat Clear Calc 61.8 Estimated GFR 54 Random Glucose 138 H (60-115) mg/dL Calcium 8.5 D (8.4-10.2) mg/dL Total Bilirubin 0.4 (0.0-1.0) mg/dL AST 260 H (5-37) U/L ALT 300 H (0-40) U/L Alkaline Phosphatase 73 (39-117) U/L Total Protein 6.9 (6.5-8.0) g/dL Albumin 3.8 (3.5-5.0) g/dL Discharge Plan Discharge Clinical Impression: Urticarial rash, Angioedema of tongue, Elevated liver transaminase level Anaphylaxis Qualifiers: Encounter type: initial encounter Qualified Code(s): T78.2XXA - Anaphylactic shock, unspecified, initial encounter Angioedema of lips Qualifiers: Encounter type: initial encounter Qualified Code(s): T78.3XXA - Angioneurotic edema, initial encounter Patient Disposition: Still a Patient Instructions: General Allergic Reaction (ED) Additional Instructions: You had a serious allergic reaction most likely caused by the food that you ate prior to going to bed You were treated with epinephrine 0.3 mg intramuscularly x2 doses, Solu-Medrol 125 mg IV, Pepcid 20 mg IV and Benadryl 50 mg IV Take prednisone 20 mg pills, 3 pills once a day for 5 days. While you ?are taking prednisone, do not take any NSAIDs (Motrin, Advil, ibuprofen, Aleve, naproxen). Take Benadryl (diphenhydramine) 25 mg pills, 2 pills 4 times a day for the next 2-3 days to help reduce the swelling and itchiness in the area of your rash. This medication will make you sleepy. Do not drive or work while taking this medication. You need to carry an EpiPen with you in the event that you have reaction. Soon as you start to feel symptoms such as rash, lip swelling, tongue swelling, lightheadedness or dizziness then you need to give yourself in EpiPen and call 911. If you are not better in 5 minutes give yourself the 2nd EpiPen. You will need to follow-up with an block bolter mule operator to determine what you are allergic to so that you can try to avoid the allergens in the future Follow-up with your doctor in 2 days. Please return to the emergency department if your symptoms get worse or if you develop any symptoms that are concerning to you. Your AST and ALT were elevated at 260 and 300(normal is less than 40). This could be secondary to your alcohol use or secondary to the rosuvastatin. You should discuss this with your monogram machine operator, Dr. Garcia at your follow-up appointment. Stop drinking alcohol and do not take any Tylenol. Prescriptions: New epinephrine [EpiPen 2-Ralph] 0.3 mg/0.3 mL auto-injector 0.3 mg IM Q10M PRN (Reason: anaphylaxis) Qty: 2 0RF prednisone 20 mg tablet 60 mg PO DAILY 5 Days Qty: 15 0RF No Action aspirin [Ecotrin Low Strength] 81 mg tablet,delayed release (DR/EC) 81 mg PO DAILY Qty: 30 2RF metoprolol succinate [Toprol XL] 50 mg tablet extended release 24 hr 50 mg PO DAILY Qty: 30 2RF rosuvastatin [Crestor] 40 mg tablet 40 mg PO DAILY Qty: 30 3RF
[2023-11-18 23:14] VITALS: BP 99/69; PULSE 57
[2023-11-18] MEDS: EPINEPHrine 1 MG/ML VIAL 0.3 MG IM ×2 (23:14→23:30)
[2023-11-18] MEDS: methylPREDNISolone Sod Succ 125 MG/2 ML VIAL IVPUSH (23:18)
[2023-11-18] MEDS: diphenhydrAMINE HCL 50 MG/ML VIAL IVPUSH (23:20)
[2023-11-18 23:25] VITALS: BP 106/53; PULSE 56; RESP 18; O2SAT 92
[2023-11-18] MEDS: Famotidine/PF 20 MG/2 ML VIAL IVPUSH (23:25)
[2023-11-18 23:30] VITALS: BP 106/53; PULSE 61
[2023-11-18] MEDS: 0.9 % Sodium Chloride 1,000 ML 999 ML IV (23:30)
[2023-11-18 23:31] VITALS: BP 144/60; PULSE 69; RESP 18; O2SAT 94; BMI 26.7
--- NOTE | 2023-11-18 23:39 | PC.NURSE ---
not much change in lip and tongue swelling but patient reports that rash is less itchy. Report to Edie CHILDRESS at beside.
--- NOTE | 2023-11-18 23:58 | ECG_ITS ---
Test Reason : ALLERGY REACTION Blood Pressure : / mmHG Vent. Rate : 067 BPM Atrial Rate : 067 BPM P-R Int : 166 ms QRS Dur : 112 ms QT Int : 420 ms P-R-T Axes : 030 -54 046 degrees QTc Int : 443 ms Normal sinus rhythm with Premature atrial complexes Left axis deviation Minimal voltage criteria for LVH, may be normal variant ( Joey product ) Abnormal ECG No previous ECGs available Referred By: Alexey Gatica Electronically Signed By:MARCI CABEZAS MD
[2023-11-19 00:38] LABS: MANUAL DIFF FLAG NO
[2023-11-19 00:49] LABS: Basophils Absolute Auto 0.2 X10*3/uL (0.0-0.2); Basophils Percent Auto 1.2 % (0-2); Eosinophils Absolute Auto 0.1 X10*3/uL (0.0-0.4); Eosinophils Percent Auto 0.5 % (0-4); Hematocrit 44.2 % (42.0-52.0); Hemoglobin 15.5 g/dl (14.0-18.0); Imm Gran Abs Auto 0.04 X10*3/uL (0.00-0.03); Imm Gran Pct Auto 0.3 % (0.0-0.4); Lymphocytes Absolute Auto 3.3 X10*3/uL (1.2-4.9); Lymphocytes Percent Auto 25.6 % (20-40); Mean Corpuscular HGB Conc 35.1 g/dl (31.0-36.0); Mean Corpuscular Hemoglobin 32.1 pg (27.0-33.0); Mean Corpuscular Volume 91.5 fL (80.0-98.0); Monocytes Absolute Auto 0.7 X10*3/uL (0.1-1.2); Monocytes Percent Auto 5.2 % (2-11); Neutrophils Absolute Auto 8.7 x10*3/uL (2.0-8.3); Neutrophils Percent Auto 67.2 % (45-73); Platelet Count 223 X10*3/uL (160-400); Red Blood Count 4.83 X10*6/uL (4.60-5.80); Red Cell Distribution Width 13.2 % (11.0-16.0); White Blood Count 12.9 X10*3/uL (4.8-10.8)
[2023-11-19 00:55] LABS: Alanine Aminotransferase 300 U/L (0-40); Albumin Level 3.8 g/dL (3.5-5.0); Alkaline Phosphatase 73 U/L (39-117); Anion Gap 12 (12-20); Aspartate Amino Transferase 260 U/L (5-37); Bilirubin Total 0.4 mg/dL (0.0-1.0); Blood Urea Nitrogen 24 mg/dL (9-16); Calcium 8.5 mg/dL (8.4-10.2); Carbon Dioxide 25 mmol/L (22-29); Chloride 108 mmol/L (96-108); Creatinine Clr Calc Pharmacy 61.8; Estimated Glomerular Filt Rate 54; Glucose Random 138 mg/dL (60-115); Potassium 4.3 mmol/L (3.3-5.1); Sodium 141 mmol/L (135-145); Total Protein 6.9 g/dL (6.5-8.0)
[2023-11-19 02:46] VITALS: BP 113/56; PULSE 49; RESP 17; O2SAT 94
[2023-11-19 04:00] VITALS: BP 113/56; PULSE 54; RESP 16; O2SAT 95
== END 2023-11-19 04:09 | disposition still patient (30) ==
PROVIDERS: Emergency Provider Emergency Medicine Emergency Medical Services; PCP Internal Medicine
DX: L50.0 Allergic urticaria (principal); R23.3 Spontaneous ecchymoses; I25.10 Atherosclerotic heart disease of native coronary artery without angina pectoris; T78.2XXA Anaphylactic shock, unspecified, initial encounter; I47.19 Other supraventricular tachycardia; R79.89 Other specified abnormal findings of blood chemistry; Z79.899 Other long term (current) drug therapy
CPT/HCPCS: 36415; 80053; 85025; 93005; 96361; 96372; 96374; 96375; 99285; J0171; J1200; J2930

== ENCOUNTER → 2023-11-18 23:58 | Outpatient (BNV) | payer OTHER, SELFPAY | PROVIDERS: Emergency Provider Emergency Medicine Emergency Medical Services; PCP Internal Medicine; Visit Provider Internal Medicine Cardiovascular Disease | DX: I49.1 Atrial premature depolarization (principal); R94.31 Abnormal electrocardiogram [ECG] [EKG] | CPT/HCPCS: 93010 ==

== ENCOUNTER 2023-11-21 13:36 | Outpatient (AMB) | payer OTHER, SELFPAY ==
[2023-11-21 13:48] VITALS: BP 140/80; PULSE 48; BMI 27.2
--- NOTE | 2023-11-21 13:48 | MHC.OFFVIS ---
Intake Vital Signs 11/21/23 13:48 Height 6 ft 2 in Weight 211 lb 10.3 oz BMI 27.2 BP 140/80 H Blood Pressure Location Lt brachial Position Sitting Pulse 48 L Intake Visit Reasons: 7 wk f/up mibi/ echo/ holter Intake Note: 7 week follow-up mibi, echo and holter feeling good [employer] Required: No Allergies No Known Allergies [No Known Allergies*] Allergy (Verified 11/18/23 23:10) Medication List - Last Reconciled 11/21/23 by Ahmet Garcia MD aspirin (Ecotrin Low Strength) 81 mg PO DAILY epinephrine (EpiPen 2-Ralph) 0.3 mg (0.3 mL) IM Q10M PRN metoprolol succinate ER (Toprol XL) 50 mg PO DAILY prednisone 60 mg (3 x 20 mg) PO DAILY 5 days rosuvastatin (Crestor) 40 mg PO DAILY HPI HPI Comments History of Present Illness Details Attilio comes for follow-up after cardiac catheterization. This did reveal moderately severe stenosis in the LAD which was IFR positive. However given the stable nature of the plaque no interventions were performed. Since the cardiac catheterization before that he has not had any significant exertional chest pain. No palpitations, lightheadedness, syncope. He takes all his medications. Over the weekend he was in the ER because of an allergic reaction to unclear etiology. 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 Mother No problems noted. Social History Comment: no count Advance Directives Date on File: 07/24/20 Review of Systems Const Denies chills, Denies fatigue, Denies fever(s), Denies frequent falls, Denies weakness, Denies weight gain and Denies weight loss ENT Denies dizziness Card Denies chest pain, Denies leg edema, Denies lightheadedness, Denies palpitations, Denies dyspnea, Denies dyspnea on exertion, Denies orthopnea and Denies other (loss of consciousness) Resp Denies cough, Denies dyspnea and Denies dyspnea on exertion GI Denies hematochezia and Denies change in stool character Musc Denies abnormal gait, Denies muscle weakness, Denies numbness, Denies radiating pain into limb and Denies tingling Neuro Denies Abnormal speech present, Denies abnormal gait, Denies dizziness, Denies frequent falls, Denies numbness, Denies tingling and Denies weakness Endo Denies fatigue and Denies palpitations Physical Exam Vital Signs: Last Vital Signs Pulse 48 L 11/21/23 13:48 BP 140/80 H 11/21/23 13:48 BMI result Body Mass Index 27.2 Const General: cooperative, comfortable, no acute distress, alert, awake and Physically active Nutritional Appearance: average body habitus Orientation/consciousness: patient oriented x3 Limitations: no limitations HEENT Head: Yes normocephalic and Yes atraumatic Neck Neck: Yes trachea midline, Yes supple and Yes no JVD Resp Effort & Inspection: normal respiratory effort Auscultation: clear to auscultation bilaterally Cardio Jugular venous distension: no JVD Palpation: normal PMI Rate: regular rate Rhythm: regular rhythm Heart sounds: S1 normal heart sound present, S2 normal heart sound present, no click, no gallops and Murmur heart sound present systolic early Peripheral pulses: Peripheral pulses 2+ throughout GI Auscultation: normal bowel sounds Skin General skin exam: no rashes or lesions noted Neuro General: patient oriented x3 and no focal motor deficits Speech: No Abnormal speech present Extrem General: Yes no clubbing, cyanosis or edema Psych Appearance: grossly normal Assessment & Plan Assessment & Plan (1) CAD (coronary artery disease): Code(s): I25.10 - Atherosclerotic heart disease of [place] coronary artery without angina pectoris Plan: CAD with moderately severe stenosis in the LAD which is IFR positive with stable block pattern. He has had no exertional symptoms since then. Management of coronary artery disease and pathophysiology of atherosclerosis was discussed. Will suggest to continue low-dose aspirin, metoprolol as well as high-intensity statin therapy. Target goal LDL less than 70 mg/dL. Advised lipid panel in about a month's time. We discussed about pursuing continued exercise protocol but avoiding sudden strenuous exertional activity. If he has progressive symptoms angina will require further interventional therapy to the LAD. This was discussed with him. He understands and agrees. (2) NSVT (nonsustained ventricular tachycardia): Code(s): I47.29 - Other ventricular tachycardia Plan: Nonsustained ventricular tachycardia in the past and with symptoms of palpitations and near-syncope. He does have underlying obstructive coronary artery disease but with normal LV ejection fraction and no recurrent symptoms. Continue metoprolol therapy. Avoidance of stimulants such as alcohol and caffeine was discussed. Will follow up with Holter monitor in once time. Thank you for allowing me to partake in his care Coding Level of Care Code Est Pt Level 4 (69093) Diagnoses CAD (coronary artery disease) I25.10 NSVT (nonsustained ventricular tachycardia) I47.29
== END 2023-11-21 14:25 | disposition home or self-care (01) ==
PROVIDERS: PCP Internal Medicine; Visit Provider Internal Medicine Cardiovascular Disease
DX: I25.10 Atherosclerotic heart disease of native coronary artery without angina pectoris (principal); I47.29 Other ventricular tachycardia
CPT/HCPCS: 99214

== ENCOUNTER → 2023-11-21 13:36 | Outpatient (BNVA) | payer OTHER, SELFPAY | PROVIDERS: PCP Internal Medicine; Visit Provider Internal Medicine Cardiovascular Disease ==

== ENCOUNTER → 2023-12-26 10:40 | Outpatient (REF) | payer OTHER, SELFPAY ==
--- NOTE | 2023-12-26 10:43 | HM_ITS ---
Conclusion: 1. Patient was monitored for total period of 3 days 2. Baseline was normal sinus with average heart rate of 52 beats per minute 3. Frequent sinus bradycardia noted with 85% of time heart rate below 60 beats per minute with no significant pauses 4. Occasional PACs and PVCs noted without significant tachyarrhythmias 5. No patient reported symptoms MTDD
== END ==
LOC: HO.CARD 10:40
PROVIDERS: PCP Internal Medicine; Visit Provider Internal Medicine Cardiovascular Disease
DX: I47.29 Other ventricular tachycardia (principal)
CPT/HCPCS: 93242

== ENCOUNTER → 2023-12-26 10:43 | Outpatient (BNV) | payer OTHER, SELFPAY | PROVIDERS: PCP Internal Medicine; Visit Provider Internal Medicine Cardiovascular Disease | DX: R00.1 Bradycardia, unspecified (principal) | CPT/HCPCS: 93244 ==

== ENCOUNTER 2024-01-03 12:58 | Outpatient (AMB) | payer OTHER, SELFPAY ==
--- NOTE | 2024-01-03 13:03 | A.OFFVIS_ITS ---
Intake Intake Visit Reasons: 3M Med Review(Sildenafil) Intake Note: Patient is Present for Telephone Follow Up Urology Med: None Antibiotic Allergy:None Blood Thinner: Aspirin Allergies No Known Allergies [No Known Allergies*] Allergy (Verified 01/03/24 13:04) HPI HPI Comments History of Present Illness Details Chacha is a pleasant Bulgarian male. He is seen for the following urologic conditions - Peyronie's disease - erectile dysfunction Telemedicine Evaluation 15 min Consultation [employer] Susi Video attempted Has been doing better when consistent with tadalafil 10mg Will try stopping sildenafil to 200 mg on demand Peyronie stable Retrial ED medications with 3 month follow-up Peyronie's disease Stable disease Does not interfere with intercourse Does use PD 5 inhibitors - prior success with Viagra not effectiv e currently - will change to tadalafil daily - presc ription provided PSA 08/06 1.9, 10/07 1.6 Erectile dysfunction Inability to maintain erection Good response to tadalafil daily 10mg with 20mg on demand Prior colovesical fistula Presentation with gross hematuria Underwent repair [facility] Medical History 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 Mother No problems noted. Social History Comment: no count Advance Directives Date on File: 07/24/20 Review of Systems Const All systems reviewed & are unremarkable except as noted in HPI and below Reports no additional complaints Resp Reports no additional complaints GI Reports no additional complaints Reports as per HPI Musc Reports no additional complaints Physical Exam Telemedicine evaluation Appropriate responses Regular breathing rate and rhythm HEENT Head: Yes normal to inspection Ears: hearing grossly normal bilaterally Eyes General: appearance normal, both eyes and all related structures Neck Neck: Yes normal visual inspection Chest Chest palpation & inspection: normal inspection of the chest Resp Effort & Inspection: normal respiratory effort and able to speak in complete sentences Assessment & Plan Assessment & Plan (1) Erectile dysfunction due to arterial insufficiency: Code(s): N52.01 - Erectile dysfunction due to arterial insufficiency Plan Three-month follow-up Trial high-dose sildenafil Medications: New sildenafil administer 60 minutes before intended activity May use up to 200mg 100 mg PO ONCE 30 days PRN 30 tabs 1RF sexual activity N52.01 - Erectile dysfunction due to arterial insufficiency tadalafil 10 mg PO DAILY 90 days 90 tabs 0RF sexual activity N52.9 - Male erectile dysfunction, unspecified Patient Instructions: Imaging studies, laboratory and physical exam results were discussed and reviewed in detail. No major barriers to patient understanding were identified. An opportunity to ask questions regarding the treatment plan was provided. All questions were answered. The patient expressed understanding and agreement with the above treatment plan. The patient is aware they should contact our office by phone for worsening of their current condition or the appearance of new urologic symptoms. Compliance is encouraged with any medications and followup testing that is ordered. It is a privilege to participate in the urologic care of your patient. If you have any questions or concerns regarding treatment for the above conditions, or other urologic issues, please do not hesitate to contact me. The office telephone contact is [phone]. This note is constructed using voice recognition software. While every effort has been made to ensure accuracy precision honer errors may have been included. Yours sincerely, Dr Jake Marcos MD, [facility] - Urology Providers of Expert, Compassionate Care for the Genitourinary System Telehealth Telehealth Location of provider rendering services: practice address Location of patient: address on file Patient Identification confirmed using: Name, : Yes Telehealth method: video Patient verbally consented to treatment: Yes Patient verbally consented to billing insurance company: Yes Patient informed of any privacy concerns related to visit: Yes Coding Level of Care Code Tele Est Pt Level 4 (51032) Diagnoses Erectile dysfunction due to arterial insufficiency N52.01
== END 2024-01-03 14:29 | disposition home or self-care (01) ==
LOC: HO.HUSH 12:58
PROVIDERS: PCP Internal Medicine; Visit Provider Urology
DX: N52.01 Erectile dysfunction due to arterial insufficiency (principal)
CPT/HCPCS: 99214

== ENCOUNTER → 2024-01-03 12:58 | Outpatient (BNVA) | payer OTHER, SELFPAY | PROVIDERS: PCP Internal Medicine; Visit Provider Urology ==

== ENCOUNTER 2024-04-06 10:29 | Outpatient (AMB) | payer OTHER, SELFPAY ==
--- NOTE | 2024-04-06 10:29 | MHC.OFFVIS ---
Intake Visit Reasons: 3M Med Review(Sildenafil) Intake Note: Patient presents to the office today for a 3 month med review(sildenafil) Urology meds: Sildenafil, Tadalafil Blood thinners:Aspirin Allergies No Known Allergies [No Known Allergies*] Allergy (Verified 04/06/24 10:30) Medication List - Last Reconciled 04/06/24 by Jake Marcos MD aspirin (Ecotrin Low Strength) 81 mg PO DAILY epinephrine (EpiPen 2-Ralph) 0.3 mg (0.3 mL) IM Q10M PRN metoprolol succinate ER (Toprol XL) 50 mg PO DAILY rosuvastatin (Crestor) 40 mg PO DAILY sildenafil 100 mg PO ONCE PRN 30 days tadalafil 10 mg PO DAILY 90 days HPI Comments Details: Chacha is a pleasant [place]ian male. He is seen for the following urologic conditions - Peyronie's disease - erectile dysfunction Telemedicine Evaluation 15 min Consultation [employer] Susi Video attempted High-dose therapy 10 mg tadalafil daily with 200 mg sildenafil on demand Peyronie stable Six-month follow-up office Peyronie's disease Stable disease Does not interfere with intercourse Does use PD 5 inhibitors - prior success with Viagra not effective currently - will change to tadalafil daily - prescription provided PSA 08/06 1.9, 10/07 1.6 Erectile dysfunction Inability to maintain erection Good response to tadalafil daily 10mg with 20mg on demand Prior colovesical fistula Presentation with gross hematuria Underwent repair [facility] Medical History 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 Mother No problems noted. Social History Comment: no count Advance Directives Date on File: 07/24/20 Review of Systems Const All systems reviewed & are unremarkable except as noted in HPI and below Reports no additional complaints Resp Reports no additional complaints GI Reports no additional complaints Reports as per HPI Musc Reports no additional complaints Physical Exam Telemedicine evaluation Appropriate responses Regular breathing rate and rhythm HEENT Head: Yes normal to inspection Ears: hearing grossly normal bilaterally Eyes General: appearance normal, both eyes and all related structures Neck Neck: Yes normal visual inspection Chest Chest palpation & inspection: normal inspection of the chest Resp Effort & Inspection: normal respiratory effort and able to speak in complete sentences Telehealth Telehealth Telehealth Platform: [employer] Location of provider rendering services: practice address Location of patient: address on file Patient Identification confirmed using: Name, : Yes Telehealth method: video Patient verbally consented to treatment: Yes Patient verbally consented to billing insurance company: Yes Patient informed of any privacy concerns related to visit: Yes Minutes spent on Phone/Video with Pt.: 15 Assessment & Plan Assessment & Plan (1) Peyronie disease: Code(s): N48.6 - Induration penis plastica Category: Medical (2) BPH (benign prostatic hyperplasia): Code(s): N40.0 - Benign prostatic hyperplasia without lower urinary tract symptoms Category: Medical (3) Erectile dysfunction due to arterial insufficiency: Code(s): N52.01 - Erectile dysfunction due to arterial insufficiency Category: Medical Plan Continue current medications Six-month follow-up Medications: Refilled sildenafil administer 60 minutes before intended activity May use up to 200mg 100 mg PO ONCE 30 days PRN 30 tabs 1RF sexual activity N52.01 - Erectile dysfunction due to arterial insufficiency tadalafil 10 mg PO DAILY 90 days 90 tabs 1RF sexual activity N52.9 - Male erectile dysfunction, unspecified Patient Instructions: Imaging studies, laboratory and physical exam results were discussed and reviewed in detail. No major barriers to patient understanding were identified. An opportunity to ask questions regarding the treatment plan was provided. All questions were answered. The patient expressed understanding and agreement with the above treatment plan. The patient is aware they should contact our office by phone for worsening of their current condition or the appearance of new urologic symptoms. Compliance is encouraged with any medications and followup testing that is ordered. It is a privilege to participate in the urologic care of your patient. If you have any questions or concerns regarding treatment for the above conditions, or other urologic issues, please do not hesitate to contact me. The office telephone contact is [phone]. This note is constructed using voice recognition software. While every effort has been made to ensure accuracy business english instructor errors may have been included. Yours sincerely, Dr Jake Marcos MD, [facility] - Urology Providers of Expert, Compassionate Care for the Genitourinary System Coding Level of Care Code Tele Est Pt Level 3 (33404) Diagnoses Peyronie disease N48.6 BPH (benign prostatic hyperplasia) N40.0 Erectile dysfunction due to arterial insufficiency N52.01
== END 2024-04-06 11:53 | disposition home or self-care (01) ==
LOC: HO.HUSH 10:29
PROVIDERS: PCP Internal Medicine; Visit Provider Urology
DX: N48.6 Induration penis plastica (principal); N40.0 Benign prostatic hyperplasia without lower urinary tract symptoms; N52.01 Erectile dysfunction due to arterial insufficiency
CPT/HCPCS: 99213

== ENCOUNTER → 2024-04-06 10:29 | Outpatient (BNVA) | payer OTHER, SELFPAY | PROVIDERS: PCP Internal Medicine; Visit Provider Urology ==

== ENCOUNTER 2024-05-24 12:36 | Outpatient (AMB) | payer OTHER, SELFPAY ==
[2024-05-24 12:42] VITALS: BP 110/66; PULSE 58; BMI 26.6
--- NOTE | 2024-05-24 12:42 | A.OFFVIS_ITS ---
Vital Signs 05/24/24 12:42 Height 6 ft 2 in Weight 207 lb 3.752 oz BMI 26.6 BP 110/66 Blood Pressure Location Lt brachial Position Sitting Pulse 58 Intake Visit Reasons: 6 mth f/up Intake Note: 6 month follow-up feeling good [employer] Required: No Allergies No Known Allergies [No Known Allergies*] Allergy (Verified 04/06/24 10:30) Medication List - Last Reconciled 05/24/24 by Ahmet Garcia MD aspirin (Ecotrin Low Strength) 81 mg PO DAILY epinephrine (EpiPen 2-Ralph) 0.3 mg (0.3 mL) IM Q10M PRN metoprolol succinate ER (Toprol XL) 50 mg PO DAILY rosuvastatin (Crestor) 40 mg PO DAILY sildenafil 100 mg PO ONCE PRN 30 days tadalafil 10 mg PO DAILY 90 days HPI Comments Details: Attilo for follow-up. He said recently while he was walking around [employer] and then rushed to the car he had some dull ache in his chest. He had dull aches at other times when he was resting. Symptoms then dissipated within 5-10 minutes. He has not had any consistent symptoms. Denies any palpitations although notices when he has this dull ache he notices some more irregular heartbeat. Denies any lightheadedness, syncope. Takes all his medications. 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 Mother No problems noted. Social History Comment: no count Advance Directives Date on File: 07/24/20 Review of Systems Const Denies chills, Denies fatigue, Denies fever(s), Denies frequent falls, Denies weakness, Denies weight gain and Denies weight loss ENT Denies dizziness Card Denies chest pain, Denies leg edema, Denies lightheadedness, Denies palpitations, Denies dyspnea, Denies dyspnea on exertion, Denies orthopnea and Denies other (loss of consciousness) Resp Denies cough, Denies dyspnea and Denies dyspnea on exertion GI Denies hematochezia and Denies change in stool character Musc Denies abnormal gait, Denies muscle weakness, Denies numbness, Denies radiating pain into limb and Denies tingling Neuro Denies Abnormal speech present, Denies abnormal gait, Denies dizziness, Denies frequent falls, Denies numbness, Denies tingling and Denies weakness Endo Denies fatigue and Denies palpitations Physical Exam Vital Signs: Last Vital Signs Pulse 58 05/24/24 12:42 BP 110/66 05/24/24 12:42 BMI result Body Mass Index 26.6 Const General: cooperative, comfortable, no acute distress, alert, awake and Physically active Nutritional Appearance: average body habitus Orientation/consciousness: patient oriented x3 Limitations: no limitations HEENT Head: Yes normocephalic and Yes atraumatic Neck Neck: Yes trachea midline, Yes supple and Yes no JVD Resp Effort & Inspection: normal respiratory effort Auscultation: clear to auscultation bilaterally Cardio Jugular venous distension: no JVD Palpation: normal PMI Rate: regular rate Rhythm: regular rhythm Heart sounds: S1 normal heart sound present, S2 normal heart sound present, no click, no gallops and Murmur heart sound present systolic early Peripheral pulses: Peripheral pulses 2+ throughout GI Auscultation: normal bowel sounds Skin General skin exam: no rashes or lesions noted Neuro General: patient oriented x3 and no focal motor deficits Speech: No Abnormal speech present Extrem General: Yes no clubbing, cyanosis or edema Psych Appearance: grossly normal Assessment & Plan Assessment & Plan (1) CAD (coronary artery disease): Code(s): I25.10 - Atherosclerotic heart disease of [place] coronary artery without angina pectoris Category: Medical Plan: CAD with FFR positive mid LAD lesion, before did not have any symptoms. Recentl y has some concerning symptoms with possible symptoms of angina with dull ache. However symptoms have happen other times as well. At this point time I would suggest to start long-acting nitrate therapy as well as sublingual nitroglycerin. Have discussed that if his symptoms persist or has progressive symptoms would proceed with another invasive cardiac catheterization with intent of stenting the LAD. This was discussed with him. His LDL is not well optimized continue high-intensity statin therapy. Repeat lipid panel. Continue low-dose aspirin therapy for life. Continue high-intensity statin therapy for life. If LDL is not well optimized will add ezetimibe to his regimen. (2) NSVT (nonsustained ventricular tachycardia): Code(s): I47.29 - Other ventricular tachycardia Category: Medical Plan: Nonsustained ventricular tachycardia without any clinical symptoms or recurrence. Last Holter on metoprolol therapy at shown improved burden of ventricular arrhythmias. Continue metoprolol therapy. Avoidance of stimulants was discussed. Follow up in the clinic in 6 months time, sooner p.r.n.. Thank you for allowing me to partake in his care Orders: Orders Lipid Panel Today I25.10 - Atherosclerotic heart disease of [place] coronary artery without angina pectoris Medications: New isosorbide mononitrate ER 30 mg PO DAILY 30 tabs 5RF I25.10 - Atherosclerotic heart disease of [place] coronary artery without angina pectoris nitroglycerin do not exceed 3 doses per episode 0.4 mg sublingual Q5M PRN 20 tabs 1RF chest pain I25.10 - Atherosclerotic heart disease of [place] coronary artery without angina pectoris Discontinued sildenafil administer 60 minutes before intended activity May use up to 200mg Discontinued Reason: Doctor's Order 100 mg PO ONCE 30 days PRN 30 tabs 1RF sexual activity N52.01 - Erectile dysfunction due to arterial insufficiency tadalafil Discontinued Reason: Doctor's Order 10 mg PO DAILY 90 days 90 tabs 1RF sexual activity N52.9 - Male erectile dysfunction, unspecified Coding Level of Care Code Est Pt Level 4 (21440) Diagnoses CAD (coronary artery disease) I25.10 NSVT (nonsustained ventricular tachycardia) I47.29
== END 2024-05-24 13:11 | disposition home or self-care (01) ==
PROVIDERS: PCP Internal Medicine; Visit Provider Internal Medicine Cardiovascular Disease
DX: I25.10 Atherosclerotic heart disease of native coronary artery without angina pectoris (principal); I47.29 Other ventricular tachycardia
CPT/HCPCS: 99214

== ENCOUNTER → 2024-05-24 12:36 | Outpatient (BNVA) | payer OTHER, SELFPAY | PROVIDERS: PCP Internal Medicine; Visit Provider Internal Medicine Cardiovascular Disease ==

== ENCOUNTER → 2024-11-22 13:09 | Outpatient (BNVA) | payer OTHER, SELFPAY | PROVIDERS: PCP Internal Medicine; Visit Provider Internal Medicine Cardiovascular Disease | DX: I25.10 Atherosclerotic heart disease of native coronary artery without angina pectoris (principal); I47.29 Other ventricular tachycardia; R42 Dizziness and giddiness | CPT/HCPCS: 93005 ==

== ENCOUNTER 2024-12-04 15:36 | Emergency (ER) | payer OTHER, SELFPAY ==
--- NOTE | ~2024-12-04 | CT_ITS ---
CLINICAL HISTORY: hematuria CT abdomen and pelvis without contrast Comparison: CT - CT ABDOMEN PELVIS WO/W CON - 07/24/20 13:53 EDT Findings: There are foci of atelectasis at the bilateral lung bases. No consolidation or pleural effusion. 2 mm calculus at the right ureterovesical junction. Two additional tiny calculi within the upper pole of the right kidney. No hydronephrosis. Remaining abdominal organs unremarkable. No calcified gallstones. Moderate distention of the rectum with fecal material. Moderate retention of fecal material within the distal colon. No colitis or bowel obstruction. Severe atherosclerotic changes and vascular tortuosity. 3.7 cm aneurysm of the infrarenal abdominal aorta with interval increase (previously 3.1 cm ). Pelvic contents unremarkable. Normal appendix. No acute fracture. IMPRESSION: 1. There is a tiny calculus at the right ureterovesical junction. No associated hydronephrosis. 2. There are 2 additional nonobstructive calculi within the right kidney. 3. 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 This document has been electronically signed by: Galilea Saunders MD on 12/04/2024 17:01:57
[2024-12-04 16:07] VITALS: BP 136/80; PULSE 52; RESP 18; TEMP 36.9; O2SAT 95; BMI 27.7
--- NOTE | 2024-12-04 16:14 | ED.MALEGU ---
HPI - Male Genitourinary General Chief complaint: Urogenital-Female Stated complaint: Blood in urine Time Seen by Provider: 12/04/24 20:48 Source: patient Mode of arrival: ambulatory Limitations: no limitations History of Present Illness ED Provider: Aruna Nelson NP HPI Narrative: Patient is a 69-year-old male past medical history of CAD, SVT, palpitations, erectile dysfunction who presents emergency department for evaluation. He states that this morning he was having dysuria and hematuria, he reports after going to the bathroom he notes that he was ?dripping blood? from his penis, when asked for further clarification he states ?wants to drop hit the toilet bowl all of the water turned red?. He states that he is not having bleeding from the urethral meatus when he is not voiding. Earlier he was having abdominal pain and bloating with associated nausea and dizziness but this has since resolved. Endorses only mild dysuria his most recent urination. Denies any history of kidney stones. Denies any additional bleeding, he is on low-dose aspirin otherwise without anticoagulants Related Data Previous Rx's ?Medication ?Instructions ?Recorded epinephrine 0.3 mg/0.3 mL 0.3 mg (0.3 mL) IM Q10M PRN 11/19/23 injection, auto-injector (EpiPen anaphylaxis #2 ea 2-Ralph) aspirin 81 mg tablet,delayed 81 mg PO DAILY #90 tabs 10/26/24 release (Ecotrin Low Strength) isosorbide mononitrate 30 mg 30 mg PO DAILY #30 tabs 10/26/24 tablet,extended release 24 hr metoprolol succinate 50 mg 50 mg PO DAILY #90 tabs 10/26/24 tablet,extended release 24 hr (Toprol XL) nitroglycerin 0.4 mg sublingual 0.4 mg sublingual Q5M PRN chest 10/26/24 tablet pain #20 tabs rosuvastatin 40 mg tablet (Crestor) 40 mg PO DAILY #90 tabs 10/26/24 tamsulosin 0.4 mg capsule 0.4 mg PO BEDTIME #10 caps 12/04/24 Allergies Allergy/AdvReac Type Severity Reaction Status Date / Time No Known Allergies Allergy Verified 12/04/24 16:09 [No Known Allergies*] Review of Systems Review of Systems: Yes all other systems are reviewed and are negative PMFSH Past Medical History Attestation statement: The following information was validated with the patient. 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 Mother No problems noted. Social History Social History Comment: no count Advance Directives: Yes Advance Directives on File: Yes Advance Directives Date on File: 07/24/20 Physical Exam Vital Signs: Vital Signs: Last Vital Signs Temp 98.1 F 12/04/24 21:06 Pulse 50 12/04/24 21:06 Resp 16 12/04/24 21:06 BP 125/61 12/04/24 21:06 Pulse Ox 97 12/04/24 21:06 O2 Del Method Room Air 12/04/24 21:06 BMI result Body Mass Index 27.7 Appearance: Alert.?Oriented to person, place and time. No acute distress.?Normal affect. CVS: Heart sounds normal. Normal heart rate and rhythm.? Pulses normal.?? Respiratory: No respiratory distress.? Lung sounds clear to auscultation bilaterally?? Abdomen: Soft and non-tender. Normoactive bowel sounds no CVAT. No pulsatile mass.?? Skin: Skin warm and dry.? Normal skin color.? ? Extremities: No lower extremity edema.? Neuro: Moves all extremities spontaneously. Sensation intact bilaterally. Ambulates with normal steady gait. Course Course Course Narrative: This is an RME: Additional HPI, ROS, PE not included below will be deferred to primary provider. RME assessment and note performed by: Ale Cruz PA-C This is a 69-year-old male, with a past medical history of CAD, and SVT, palpitations, who presents emergency department with complaints of hematuria which started this morning. Patient states that he is now ?dripping blood? from his penis. He also reports abdominal bloating. Also feeling nauseous and slight dizziness. He sees Dr. Marcos for erectile dysfunction, no history of kidney stones. Plan: Labs, UA, CT abdomen and pelvis Medical Decision Making Medical Decision Making [facility] Narrative: Patient is a 69-year-old male past medical history of CAD, SVT, palpitations, erectile dysfunction who presents emergency department for evaluation of dysuria and hematuria, resolved abdominal pain and nausea as per HPI. Overall he is well-appearing, nontoxic, afebrile. He is without tachycardia tachypnea or hypoxia. Abdominal examination is benign. He has been able to urinate without difficulty. He is not having persistent bleeding from the urethral meatus. He declines genital examination at the time of my evaluation. He denies any lesions or sores that would be resulting in bleeding, denies associated swelling. Reviewed workup obtained prior to my assumption. CBC is without leukocytosis, has a mild normocytic anemia not meeting transfusion criteria, no thrombocytopenia. No significant electrolyte derangement. No ANANTH. LFTs within normal range. Urinalysis with microscopic hematuria, not consistent with urinary tract infection. CT of the abdomen and pelvis revealing 2 mm right UVJ stone no hydronephrosis. Discussed conservative treatment in addition to Flomax and outpatient follow-up with Urology, reviewed worrisome signs and symptoms that would warrant re-evaluation emergency department. All questions answered. Differential Diagnosis Differential Diagnoses: The differential diagnosis associated with the presentation includes (UTI, ureteral calculi, hydronephrosis, pyelonephritis) Admission/Observation Consideration of admission/observation: Escalation of care including admission/observation considered Lab Data [facility] Lab Attestation statement: I reviewed the patient's lab results. (See narrative above) 12/04/24 17:13 12/04/24 17:13 Labs: Lab Results 12/04/24 12/04/24 Range/Units 17:13 17:30 WBC 7.3 (4.8-10.8) X10*3/uL RBC 4.09 L (4.60-5.80) X10*6/uL Hgb 13.3 L (14.0-18.0) g/dl Hct 38.9 L (42.0-52.0) % MCV 95.1 (80.0-98.0) fL MCH 32.5 (27.0-33.0) pg MCHC 34.2 (31.0-36.0) g/dl RDW 13.6 (11.0-16.0) % Plt Count 197 (160-400) X10*3/uL MPV 10.0 (9.4-12.4) fL Immature Gran % (Auto) 0.3 (0.0-0.4) % Neut % (Auto) 51.7 (45-73) % Lymph % (Auto) 33.6 (20-40) % Mercer % (Auto) 10.2 (2-11) % Eos % (Auto) 3.0 (0-4) % Baso % (Auto) 1.2 (0-2) % Lymph # (Auto) 2.4 (1.2-4.9) X10*3/uL Mercer # (Auto) 0.7 (0.1-1.2) X10*3/uL Eos # (Auto) 0.2 (0.0-0.4) X10*3/uL Baso # (Auto) 0.1 (0.0-0.2) X10*3/uL Abs Immat Gran (auto) 0.02 (0.00-0.03) X10*3/uL Absolute Neuts (auto) 3.8 (2.0-8.3) x10*3/uL Absolute Nucleated RBC 0.000 (0.0-0.012) X10*3/uL Nucleated RBC % (auto) 0.0 (0.0-0.2) /100WBC Sodium 142 (135-145) mmol/L Potassium 4.2 (3.3-5.1) mmol/L Chloride 109 H (96-108) mmol/L Carbon Dioxide 27 (22-29) mmol/L Anion Gap 10 L (12-20) BUN 24 H (9-16) mg/dL Creatinine 1.08 (0.5-1.4) mg/dL Estim Creat Clear Calc 73.9 Estimated GFR > 60 Random Glucose 86 (60-115) mg/dL Calcium 8.8 (8.4-10.2) mg/dL Magnesium 1.9 (1.6-2.6) mg/dL Total Bilirubin 0.5 (0.0-1.0) mg/dL Direct Bilirubin 0.2 (0.0-0.5) mg/dL AST 28 (5-37) U/L ALT 37 (0-40) U/L Alkaline Phosphatase 48 (39-117) U/L Total Creatine Kinase 98 (38-174) U/L Total Protein 7.6 (6.5-8.0) g/dL Albumin 4.1 (3.5-5.0) g/dL Lipase 23 (8-78) U/L Urine Color BROWN Urine Appearance Turbid Urine pH 7.0 (5.0-9.0) Ur Specific [place] >= 1.030 H (1.005-1.025) Urine Protein See Note (Neg-Trace) mg/dL Urine Glucose (UA) Negative (Negative) mg/dL Urine Ketones See Note (Negative) mg/dL Urine Blood Large (3+) H (Negative) Urine Nitrite See Note (Negative) Ur Leukocyte Esterase See Note (Negative) Urine RBC >20 H (0-2) /HPF Urine WBC 6-10 (0-5) /HPF Ur Squamous Epith Cells 3-5 (0-2) /HPF Urine Bacteria None Seen (None Seen) Hyaline Casts 0-2 (0-2) /LPF Urine Yeast Present Radiology Impression Discussion of test interpretation with radiology: I have reviewed the radiologist's reading. Radiologist Impression: IMPRESSION: 1. There is a tiny calculus at the right ureterovesical junction. No associated hydronephrosis. 2. There are 2 additional nonobstructive calculi within the right kidney. 3. 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 Prescription Management I considered prescription management with: Other (See narrative above) Chronic Conditions Patient?s care impacted by: Other (See narrative above) Discharge Plan Discharge Clinical Impression: Right ureteral calculus Patient Disposition: Home, Self-Care Instructions: Ureteral Stones (ED) Additional Instructions: As discussed, you were found to have kidney stones today, one of which you are currently passing which can result in abdominal pain as well as the blood. A prescription for tamsulosin/Flomax has been sent to your pharmacy to take at night. Please contact Dr. Marcos's office in the morning to arrange for a follow-up visit. Return with any new or worsening symptoms or concerns. Prescriptions: New tamsulosin 0.4 mg capsule 0.4 mg PO BEDTIME Qty: 10 0RF No Action isosorbide mononitrate 30 mg tablet extended release 24 hr 30 mg PO DAILY Qty: 30 5RF aspirin [Ecotrin Low Strength] 81 mg tablet,delayed release (DR/EC) 81 mg PO DAILY Qty: 90 3RF metoprolol succinate [Toprol XL] 50 mg tablet extended release 24 hr 50 mg PO DAILY Qty: 90 3RF nitroglycerin 0.4 mg tablet, sublingual 0.4 mg sublingual Q5M PRN (Reason: chest pain) Qty: 20 1RF Rx Instructions: do not exceed 3 doses per episode rosuvastatin [Crestor] 40 mg tablet 40 mg PO DAILY Qty: 90 3RF epinephrine [EpiPen 2-Ralph] 0.3 mg/0.3 mL auto-injector 0.3 mg IM Q10M PRN (Reason: anaphylaxis) Qty: 2 0RF Referrals: Jake Marcos MD [Physician] - Parish Meyer MD [Primary Care Provider] - Print Language: Czech
--- NOTE | 2024-12-04 16:17 | ECG_ITS ---
Test Reason : abd pain Blood Pressure : */* mmHG Vent. Rate : 50 BPM Atrial Rate : 50 BPM P-R Int : 166 ms QRS Dur : 108 ms QT Int : 452 ms P-R-T Axes : 30 -50 13 degrees QTcB Int : 412 ms Sinus bradycardia Left axis deviation Moderate voltage criteria for LVH, may be normal variant ( R in aVL , Joey product ) Abnormal ECG When compared with ECG of 19-Nov-2023 00:41, No significant changes seen Referred By: Ale Cruz Electronically Signed By: GUSTAVO CHO
[2024-12-04 17:17] LABS: MANUAL DIFF FLAG NO
[2024-12-04 17:18] LABS: Basophils Absolute Auto 0.1 X10*3/uL (0.0-0.2); Basophils Percent Auto 1.2 % (0-2); Eosinophils Absolute Auto 0.2 X10*3/uL (0.0-0.4); Hematocrit 38.9 % (42.0-52.0); Hemoglobin 13.3 g/dl (14.0-18.0); Imm Gran Abs Auto 0.02 X10*3/uL (0.00-0.03); Imm Gran Pct Auto 0.3 % (0.0-0.4); Lymphocytes Absolute Auto 2.4 X10*3/uL (1.2-4.9); Lymphocytes Percent Auto 33.6 % (20-40); Mean Corpuscular HGB Conc 34.2 g/dl (31.0-36.0); Mean Corpuscular Hemoglobin 32.5 pg (27.0-33.0); Mean Corpuscular Volume 95.1 fL (80.0-98.0); Monocytes Absolute Auto 0.7 X10*3/uL (0.1-1.2); Monocytes Percent Auto 10.2 % (2-11); Neutrophils Absolute Auto 3.8 x10*3/uL (2.0-8.3); Neutrophils Percent Auto 51.7 % (45-73); Platelet Count 197 X10*3/uL (160-400); Red Blood Count 4.09 X10*6/uL (4.60-5.80); Red Cell Distribution Width 13.6 % (11.0-16.0); White Blood Count 7.3 X10*3/uL (4.8-10.8)
[2024-12-04 17:33] LABS: Albumin Level 4.1 g/dL (3.5-5.0); Alkaline Phosphatase 48 U/L (39-117); Anion Gap 10 (12-20); Aspartate Amino Transferase 28 U/L (5-37); Bilirubin Direct 0.2 mg/dL (0.0-0.5); Bilirubin Total 0.5 mg/dL (0.0-1.0); Blood Urea Nitrogen 24 mg/dL (9-16); Calcium 8.8 mg/dL (8.4-10.2); Carbon Dioxide 27 mmol/L (22-29); Chloride 109 mmol/L (96-108); Creatinine Clr Calc Pharmacy 73.9; Estimated Glomerular Filt Rate > 60; Glucose Random 86 mg/dL (60-115); Lipase 23 U/L (8-78); Magnesium 1.9 mg/dL (1.6-2.6); Potassium 4.2 mmol/L (3.3-5.1); Sodium 142 mmol/L (135-145); Total Protein 7.6 g/dL (6.5-8.0)
[2024-12-04 17:34] LABS: Appearance Urine Turbid; Color Urine BROWN; Glucose Urine UA Negative (Negative); Specific Gravity - Urine >= 1.030 (1.005-1.025); UMIC TRIGGER UACC YES; Urine Blood Large (3+) (Negative)
[2024-12-04 17:46] LABS: Bacteria Urine None Seen (None Seen); Hyaline Casts Urine 0-2 /LPF (0-2); RBC Urine >20 /HPF (0-2); UACC Culture Trigger YES
[2024-12-04 17:47] LABS: Alanine Aminotransferase 37 U/L (0-40)
[2024-12-04 21:06] VITALS: BP 125/61; PULSE 50; RESP 16; TEMP 36.7; O2SAT 97
[2024-12-04 21:54] VITALS: BP 125/61; PULSE 50; RESP 16; TEMP 36.7; O2SAT 97
== END 2024-12-04 21:55 | disposition home or self-care (01) ==
PROVIDERS: Physician Assistant Medical; Emergency Provider Emergency Medicine; PCP Internal Medicine
DX: N20.2 Calculus of kidney with calculus of ureter (principal)
CPT/HCPCS: 36415; 74176; 80048; 80076; 81001; 82550; 83690; 83735; 85025; 87086; 93005; 99283; 99284

== ENCOUNTER → 2024-12-04 16:16 | Outpatient (BNV) | payer OTHER, SELFPAY | PROVIDERS: PCP Internal Medicine; Visit Provider Radiology Diagnostic Radiology | DX: N20.0 Calculus of kidney (principal); I71.43 Infrarenal abdominal aortic aneurysm, without rupture | CPT/HCPCS: 74176 ==

== ENCOUNTER → 2024-12-04 16:17 | Outpatient (BNV) | payer OTHER, SELFPAY | PROVIDERS: Emergency Provider Emergency Medicine; PCP Internal Medicine; Visit Provider Internal Medicine | DX: R00.1 Bradycardia, unspecified (principal) | CPT/HCPCS: 93010 ==

== ENCOUNTER 2025-01-18 12:45 | Outpatient (AMB) | payer OTHER, SELFPAY ==
--- NOTE | 2025-01-18 13:15 | A.OFFVIS_ITS ---
Intake Visit Reasons: nephrolithiasis Intake Note: Patient presents to the office today for nephrolithiasis PVR:38ml Urology meds: Tadalafil Blood thinners:Aspirin Allergies No Known Allergies [No Known Allergies*] Allergy (Verified 01/18/25 13:16) HPI Comments Details: Chacha is a pleasant [place] male. He is seen for the following urologic conditions - Peyronie's disease - erectile dysfunction - nephrolithiasis Reason presentation emergency room in November Stone passed with medical expulsion therapy CT with punctate stones and kidney Has been drinking iced tea Encouraged lemon water and vitamin B6 Six-month follow-up ultrasound Urinary Symptoms Review - History of nephrolithiasis since November with a 2 mm calculus at the right ureterovesical junction and multiple tiny punctate stones - Passed a kidney stone with associated hematuria described as kandice red in color - Increased fluid intake of 2.5 liters recommended - High intake of iced tea, high in oxalates, contributing to stone formation - Previous urinary symptom of blood in urine with concern for bladder cancer, urine checked today High-dose therapy 10 mg tadalafil daily with 200 mg sildenafil on demand Peyronie stable Peyronie's disease Stable disease Does not interfere with intercourse Does use PD 5 inhibitors - prior success with Viagra not effective currently - will change to tadalafil daily - prescription provided PSA 08/06 1.9, 10/07 1.6 Erectile dysfunction Inability to maintain erection Good response to tadalafil daily 10mg with 20mg on demand Prior colovesical fistula Presentation with gross hematuria Underwent repair [facility] Medical History 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 Mother No problems noted. Social History Comment: no count Advance Directives Date on File: 07/24/20 Review of Systems Const Denies chills and Denies fever(s) Card Reports no additional complaints and Denies syncope Resp Denies cough GI Denies abdominal pain and Denies heartburn Reports as per HPI and Denies change in libido Neuro Denies syncope Psych Denies change in libido Endo Denies change in libido Physical Exam Const General: cooperative, healthy appearing, comfortable and no acute distress Orientation/consciousness: patient oriented x3 HEENT Face and sinus: Yes normal facial exam Mouth: moist mucous membranes Neck Neck: Yes normal visual inspection, Yes full ROM and Yes trachea midline Chest Chest palpation & inspection: normal inspection of the chest Resp Effort & Inspection: normal respiratory effort, able to speak in complete sent ences and no respiratory distress GI Inspection: Yes normal to inspection Back/Spine/Pelvis Cervical Spine: normal cervical lordosis Thoracic/Lumbar Spine: thoracic and lumbar spine normal to inspection Skin General skin exam: no rashes or lesions noted Neuro General: patient oriented x3, gait normal, tone normal and moves all extremities Extrem General: Yes normal to inspection and Yes capillary refill normal Assessment & Plan Assessment & Plan (1) Nephrolithiasis: Code(s): N20.0 - Calculus of kidney Category: Medical Plan Plan 1. 2.5 liters daily. Limit iced tea due to oxalate content. Follow-up ultrasound in six months for nephrolithiasis monitoring. Continue current management of erectile dysfunction with primary care. Satisfactory urine analysis today, negative for bladder cancer concerns. Consider Vitamin B6 supplementation for stone prevention.: Discussion Notes I discussed with the patient the importance of increased fluid intake and dietary modifications, particularly reducing intake of iced tea to minimize nephrolithiasis risk. I explained that iced tea is high in oxalates, which can promote stone formation, and recommended alternative fluids, including adding lemon to water. The follow-up ultrasound in six months will monitor for any new developments. We addressed his past surgical history of colovesical fistula repair and linked this to his current presentation. Despite patient concerns, current testing for bladder cancer was unnecessary. He is encouraged to focus on the aforementioned urinary tract management. Patient Instructions - Drink 2.5 liters of fluid daily. - Limit iced tea consumption due to high oxalate levels. - Consider adding lemon juice to water as an alternative. - Return for follow-up ultrasound in six months. - Continue monitoring for any signs of blood in urine. - Discuss any changes in erectile dysfunction with primary care. - Consider taking Vitamin B6 for stone prevention. Orders: Orders US renal BI 6 Months N20.0 - Calculus of kidney Medications: New pyridoxine (vitamin B6) 50 mg PO DAILY 90 days 90 tabs 1RF N20.0 - Calculus of kidney Patient Instructions: This note is constructed using voice recognition software. While every effort has been made to ensure accuracy medical transcription radiology errors may have been included. Imaging studies, laboratory and physical exam results were discussed and reviewed in detail. No major barriers to patient understanding were identified. An opportunity to ask questions regarding the treatment plan was provided. All questions were answered. The patient expressed understanding and agreement with the above treatment plan. The patient is aware they should contact our office by phone for worsening of their current condition or the appearance of new urologic symptoms. Compliance is encouraged with any medications and followup testing that is ordered. It is a privilege to participate in the urologic care of your patient. If you have any questions or concerns regarding treatment for the above conditions, or other urologic issues, please do not hesitate to contact me. The office telephone contact is [phone]. Sincerely, Dr Jake Marcos MD, [facility] - Urology Compassionate Specialist Care for the Genitourinary System Coding Level of Care Code Est Pt Level 4 (89691) Diagnoses Nephrolithiasis N20.0
--- OUTSIDE RECORDS SUMMARY | 2025-01-18 14:38 | XMS_ITS | Clinical Summary ---
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 Role Phone Parish Meyer MD Primary Care Provider [phone] Social History Tobacco Use Types Packs/Day Years Used Date Smoking Tobacco: Never Assessed Sex and Gender Information Value Date Recorded Sex Assigned at Not on file Legal Sex Male 5:50 AM EST Gender Identity Not on file Sexual Orientation Not on file Plan of Treatment Health Maintenance Due Date Last Done Comments DTaP,Tdap,and Td Vaccines (1 - Tdap) 1974 Pneumococcal Vaccine: 50+ Ye ars (1 of 1 - PCV) 02/01/2004 Zoster Vaccines (1 of 2) 02/01/2004 COVID-19 Vaccine ( - 2023-2 5 season) 2024 Influenza Vaccine (#1) 2024 RSV Immunization Adult Patie nts (1 - 1-dose 75+ series) 2029 HIB Vaccines Aged Out No longer eligi ble based on patient's age to complete this topic HPV Vaccines Aged Out No longer eligi ble based on patient's age to complete this topic Hepatitis A Vaccines Aged Out No long er eligible based on patient's age to complete this topic Hepatitis B Vaccines Aged Out No long er eligible based on patient's age to complete this topic IPV Vaccines Aged Out No longer eligi ble based on patient's age to complete this topic MMR Vaccines Aged Out No longer eligi ble based on patient's age to complete this topic Meningococcal ACWY Vaccine Aged Out N o longer eligible based on patient's age to complete this topic Meningococcal B Vacine Aged Out No lo nger eligible based on patient's age to complete this topic RSV Immunization Patients Un kike 20 months Aged Out No longer eligible b ased on patient's age to complete this topic Varicella Vaccines Aged Out No longer eligible based on patient's age to complete this topic Care Teams Printing Press Machine Operator Relationship Specialty Start Date End Date Parish Meyer MD [address] [place] [address] Dr Glendy MA PCP - General Internal Medicine 09/24/19
== END 2025-01-18 13:53 | disposition home or self-care (01) ==
LOC: HO.HUSH 12:46
PROVIDERS: PCP Internal Medicine; Visit Provider Urology
DX: N20.0 Calculus of kidney (principal); Z13.9 Encounter for screening, unspecified
CPT/HCPCS: 99214

== ENCOUNTER → 2025-01-18 12:45 | Outpatient (BNVA) | payer OTHER, SELFPAY | PROVIDERS: PCP Internal Medicine; Visit Provider Urology | DX: N20.0 Calculus of kidney (principal) | CPT/HCPCS: 51798; 81003 ==

== ENCOUNTER 2025-03-28 10:47 | Outpatient (AMB) | payer OTHER, SELFPAY ==
--- NOTE | 2025-03-28 10:27 | A.OFFPC_ITS ---
Vital Signs 03/28/25 10:30 Height 6 ft 2 in Weight 219 lb BMI 28.1 BP 120/70 Blood Pressure Location Lt brachial Position Sitting Pulse 66 Pulse Source Pulse Oximeter Temp 97.7 F Temp Source Axillary Pulse Oximetry (%) 96 Oxygen Delivery Method Room Air Intake Visit Reasons: elev chol, diverticulosis, h/o RBBB - see comment Bridge Painter Helper Required: No Accompanied by: Self / Same As Patient Allergies No Known Allergies [No Known Allergies*] Allergy (Verified 03/28/25 10:30) Medication List - Last Reconciled 03/28/25 by Noris Carr MD aspirin (Ecotrin Low Strength) 81 mg PO DAILY epinephrine (EpiPen 2-Ralph) 0.3 mg (0.3 mL) IM Q10M PRN isosorbide mononitrate ER 30 mg PO DAILY metoprolol succinate ER (Toprol XL) 50 mg PO DAILY nitroglycerin 0.4 mg sublingual Q5M PRN pyridoxine (vitamin B6) 50 mg PO DAILY 90 days rosuvastatin (Crestor) 40 mg PO DAILY tamsulosin 0.4 mg PO BEDTIME Tobacco use date assessed: 03/28/25 Fall risk assessment: 1 Fall in past year Last assessed Fall Risk: 03/28/25 Dental Screening Dental Screen Date: 03/28/25 Did you have a dental visit in the last 12 months?: No Did you have a dental problem in the last 6 months where you did not have access to dental care?: No HPI HPI Comments History of Present Illness Details 70 year old male with a past medical his tory of CAD, hypertension, hyperlipidemia, nephrolithiasis, PD, BPH presenting for follow up. Last seen by pcp in Sep for CPE CV: Follows with Dr Garcia. Had cardiac cath with non occlusive CAD. On imdur, toprol, atorvastatin. Denies chest pain Follows with urology at [facility] [place]. On flomax Sees dermatology Colonoscopy Nov 2019-Dr King. 5 year recall. He is scheduling follow up ROS CONSTITUTIONAL: Denies weight loss, fever and chills. HEENT: Denies changes in vision and hearing. RESPIRATORY: Denies SOB and cough. CV: Denies palpitations and CP GI: Denies abdominal pain, nausea, vomiting and diarrhea. : Denies dysuria and urinary frequency. MSK: Denies new myalgia and joint pain. SKIN: Denies rash and pruritus. NEUROLOGICAL: Denies headache PSYCHIATRIC: Denies recent changes in mood. PHYSICAL EXAM: GENERAL: Alert and oriented x 3. NAD EYES: EOMI. Anicteric. HENT: Moist mucous membranes. No scleral icterus. No cervical lymphadenopathy. LUNGS: Clear to auscultation bilaterally. CARDIOVASCULAR: Regular rate and rhythm. No murmur. No JVD. ABDOMEN: Soft, non-tender +bs EXTREMITIES: No edema. Non-tender. SKIN: No rashes or lesions. Warm. NEUROLOGIC: No focal neurological deficits. CN II-XII grossly intact PSYCHIATRIC: Cooperative. 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 Mother No problems noted. Social History Housing: House Comment: no count Patient Tobacco Use Status: Former Tobacco user e-Cigarette/Vaping Use: Former Use Advance Directives Date on File: 07/24/20 service: No Current occupational status: retired Cognitive needs: No Hearing needs: No Vision needs: Yes (rx glasses) Questionnaire PHQ-9 Over the last 2 weeks, how often have you been bothered by any of the following problems? 1. Little interest or pleasure in doing things: not at all 2. Feeling down, depressed, or hopeless: not at all 3. Trouble falling or staying asleep, or sleeping too much: not at all 4. Feeling tired or having little energy: not at all 5. Poor appetite or overeating: not at all 6. Feeling bad about yourself - or that you are a failure or have let yourself or your family down: not at all 7. Trouble concentrating on things, such as reading the newspaper or watching television: not at all 8. Moving or speaking so slowly that other people could have noticed. Or the opposite - being so fidgety or restless that you have been moving around a lot more than usual: not at all 9. Thoughts that you would be better off or of hurting yourself in some way: not at all Total score: 0 Depression Screening Interpretation: Negative Depression Screening Done: Yes 66917 - PHQ-9 Billing: Yes Source: Developed by Drs. Lobo Aparicio, Meggan Madison, Roland Arcos and colleagues, with an educational brigid from [employer] ([employer]). Thrive Questionnaire Date Thrive assessed: 03/28/25 I am a: Patient Within the past 12 months, did the food you bought not last and you didn't have the money to get more?: Never true Within the past 12 months, did you worry whether your food would run out before you got money to buy more?: Never true Do you have trouble paying for medicines?: No Do you have trouble getting transportation to medical appointments?: No Do you have trouble paying your heating and electricity bill?: No Do you have trouble taking care of your child, family member or friend?: No Do you have trouble with day-to-day activities such as bathing, preparing meals, shopping, managing finances, etc.?: No Are you currently unemployed and looking for a job?: No Are you interested in more education?: No THRIVE Score: 0 AUDIT C Alcohol Use Questionnaire (AUDIT-C) 1. How often do you have a drink containing alcohol?: Monthly or less 2. How many drinks containing alcohol do you have on a typical day when you are drinking?: 1 or 2 3. How often do you have six or more drinks on one occasion?: Less than monthly Total Score: 2 NAKIA-7 AMB Questionnaire NAKIA-7 Date NAKIA - 7 assessed: 03/28/25 Feeling nervous, anxious, or on edge: 0 = Not at all Not being able to stop or control worryin = Not at all Worrying too much about different things: 0 = Not at all Trouble relaxin = Not at all Being so restless that it is hard to sit still: 0 = Not at all Becoming easily annoyed or irritable: 0 = Not at all Feeling afraid as if something awful might happen: 0 = Not at all Total NAKIA-7 score (0-4 normal; 5-9 mild; 10-14 moderate; 15-21 severe): 0 Source: Developed by Drs. Lobo Aparicio, Meggan Madison, Roland Arcos and colleagues, with an educational brigid from [employer] ([employer]). Physical exam (Primary Care) Vital Signs: Last Vital Signs Temp 97.7 F 03/28/25 10:30 Pulse 66 03/28/25 10:30 BP 120/70 03/28/25 10:30 Pulse Ox 96 03/28/25 10:30 Oxygen Delivery Method Room Air 03/28/25 10:30 BMI result Body Mass Index 28.1 Tobacco/Smoking Status: Tobacco use Status Tobacco use date assessed 03/28/25 03/28/25 10:31 Patient Tobacco Use Status Former Tobacco user 03/28/25 10:59 e-Cigarette/Vaping Use Former Use 03/28/25 10:59 PHQ-9: PHQ-9 Score PHQ-9: Total score 0 03/28/25 10:59 Depression Screening Interpretation: Negative Thrive Assessment: Date of Thrive Assessment Date Thrive assessed 03/28/25 03/28/25 10:31 Coding Level of Care Code New Pt Level 4 (45537) Complex EM visit Add On G2211 Diagnoses Coronary artery disease, unspecified vessel or lesion type, unspecified whether angina present, unspecified whether [place] or transplanted heart I25.10 Coronary Disease-Associated Artery/Lesion type: unspecified vessel or lesion type [place] vs. transplanted heart: unspecified whether [place] or transplanted heart Associated angina: unspecified whether angina present Nephrolithiasis N20.0 Benign prostatic hyperplasia, unspecified whether lower urinary tract symptoms present N40.0 Lower urinary tract symptom presence: unspecified whether lower urinary tract symptoms present Additional Codes PHQ-9 - 94178 - PHQ-9 Billing: Yes ([id number]) Assessment & Plan Assessment & Plan (1) CAD (coronary artery disease): Code(s): I25.10 - Atherosclerotic heart disease of [place] coronary artery without angina pectoris Category: Medical Qualifiers: Coronary Disease-Associated Artery/Lesion type: unspecified vessel or lesion type [place] vs. transplanted heart: unspecified whether [place] or transplanted heart Associated angina: unspecified whether angina present Qualified Code(s): I25.10 - Atherosclerotic heart disease of [place] coronary artery without angina pectoris (2) Nephrolithiasis: Code(s): N20.0 - Calculus of kidney Category: Medical (3) BPH (benign prostatic hyperplasia): Code(s): N40.0 - Benign prostatic hyperplasia without lower urinary tract symptoms Category: Medical Qualifiers: Lower urinary tract symptom presence: unspecified whether lower urinary tract symptoms present Qualified Code(s): N40.0 - Benign prostatic hyperplasia without lower urinary tract symptoms Plan 70 year old male to establish care past medical, surgical, social reviewed BP is well controlled BPH stable on medications Labs ordered Orders: Orders Prostate Specific Antigen Today I25.10 - Atherosclerotic heart disease of [place] coronary artery without angina pectoris, N20.0 - Calculus of kidney, N40.0 - Benign prostatic hyperplasia without lower urinary tract symptoms, R31.0 - Gross hematuria, Z13.0 - Encounter for screening for diseases of the blood and blood-forming organs and certain disorders involving the immune mechanism Complete Blood Count Auto Diff Today I25.10 - Atherosclerotic heart disease of [place] coronary artery without angina pectoris, N20.0 - Calculus of kidney, N40.0 - Benign prostatic hyperplasia without lower urinary tract symptoms, R31.0 - Gross hematuria, Z13.0 - Encounter for screening for diseases of the blood and blood-forming organs and certain disorders involving the immune mechanism Comprehensive Met. Panel Today I25.10 - Atherosclerotic heart disease of [place] coronary artery without angina pectoris, N20.0 - Calculus of kidney, N40.0 - Benign prostatic hyperplasia without lower urinary tract symptoms, R31.0 - Gross hematuria, Z13.0 - Encounter for screening for diseases of the blood and blood- forming organs and certain disorders involving the immune mechanism UA and rflx microscopic Today I25.10 - Atherosclerotic heart disease of [place] coronary artery without angina pectoris, N20.0 - Calculus of kidney, N40.0 - Benign prostatic hyperplasia without lower urinary tract symptoms, R31.0 - Gross hematuria, Z13.0 - Encounter for screening for diseases of the blood and blood- forming organs and certain disorders involving the immune mechanism Vitamin B6 Today I25.10 - Atherosclerotic heart disease of [place] coronary artery without angina pectoris, N20.0 - Calculus of kidney, N40.0 - Benign prostatic hyperplasia without lower urinary tract symptoms, R31.0 - Gross hematuria, Z13.0 - Encounter for screening for diseases of the blood and blood- forming organs and certain disorders involving the immune mechanism
[2025-03-28 10:30] VITALS: BP 120/70; PULSE 66; TEMP 36.5; O2SAT 96; BMI 28.1
--- OUTSIDE RECORDS SUMMARY | 2025-03-28 12:40 | XMS_ITS | Clinical Summary ---
Author Organization [facility] ity Address [address] [place] [address] Care Team Providers Care Sales Intern Name Role Phone Parish Meyer MD Primary Care Provider [phone] Social History Tobacco Use Types Packs/Day Years [...] - 2023-2 5 season) 2024 Influenza Vaccine (Season Ended) 2025 RSV Immunization Adult Patie nts (1 - [...] age to complete this topic Meningococcal B Vaccine Aged Out No l onger eligible based on patient's age to complete this topic RSV Immunization Patients Un kike 20 months Aged Out No longer eligible b ased on patient's age to complete this topic Varicella Vaccines Aged Out No longer eligible based on patient's age to complete this topic Care Teams Sales Intern Relationship Specialty Start Date End Date Parish Meyer MD [address] [place] [address] Dr Glendy [place] PCP - General Internal Medicine 09/24/19
== END 2025-03-28 11:17 | disposition home or self-care (01) ==
LOC: HO.HMCHD 10:47
PROVIDERS: PCP Internal Medicine; Visit Provider Internal Medicine
DX: I25.10 Atherosclerotic heart disease of native coronary artery without angina pectoris (principal); N20.0 Calculus of kidney; N40.0 Benign prostatic hyperplasia without lower urinary tract symptoms

== ENCOUNTER → 2025-03-28 10:47 | Outpatient (BNVA) | payer OTHER, SELFPAY | PROVIDERS: PCP Internal Medicine; Visit Provider Internal Medicine | DX: I25.10 Atherosclerotic heart disease of native coronary artery without angina pectoris (principal); N20.0 Calculus of kidney; N40.0 Benign prostatic hyperplasia without lower urinary tract symptoms; Z13.31 Encounter for screening for depression; Z13.30 Encounter for screening examination for mental health and behavioral disorders, unspecified | CPT/HCPCS: 96127 ==

== ENCOUNTER 2025-04-22 11:48 | Outpatient (REF) | payer OTHER, SELFPAY ==
[2025-04-22 12:07] LABS: MANUAL DIFF FLAG NO
[2025-04-22 12:20] LABS: Hematocrit 42.4 % (42.0-52.0); Hemoglobin 14.9 g/dl (14.0-18.0); Imm Gran Abs Auto 0.02 X10*3/uL (0.00-0.03); Imm Gran Pct Auto 0.3 % (0.0-0.4); Lymphocytes Absolute Auto 2.6 X10*3/uL (1.2-4.9); Mean Corpuscular HGB Conc 35.1 g/dl (31.0-36.0); Mean Corpuscular Hemoglobin 32.7 pg (27.0-33.0); Mean Corpuscular Volume 93.0 fL (80.0-98.0); NRBC Abs Auto 0.000 X10*3/uL (0.0-0.012); NRBC Pct Auto 0.0 /100WBC (0.0-0.2); Platelet Count 198 X10*3/uL (160-400); Red Blood Count 4.56 X10*6/uL (4.60-5.80); White Blood Count 7.9 X10*3/uL (4.8-10.8)
[2025-04-22 12:30] LABS: Appearance Urine Clear; Glucose Urine UA Negative (Negative); PH 5.5 (5.0-9.0); Specific Gravity - Urine 1.025 (1.005-1.025); UMIC TRIGGER UA YES
--- OUTSIDE RECORDS SUMMARY | 2025-04-22 12:42 | XMS_ITS | Clinical Summary ---
Author Organization [facility] ity Address [address] [place] [address] Care Team Providers Care Middle School Teacher Name Role Phone Parish Meyer MD Primary Care Provider Social History Tobacco Use Types Packs/Day Years [...] 2023-2 5 season) 2024 Influenza Vaccine (#1) 2025 RSV Immunization Adult Patie nts (1 [...] age to complete this topic Care Teams Middle School Teacher Relationship Specialty Start Date End Date Parish Meyer MD [address] [place] [address] Dr Glendy [place] PCP - General Internal Medicine 09/24/19
--- OUTSIDE RECORDS SUMMARY | 2025-04-22 12:42 | XMS_ITS | Patient Health Record ---
Author Organization [facility] Address [address] [place] [address] Care Team Providers Care Compounding And Finishing Supervisor Name Role Phone Parish Meyer MD Primary Care Provider Thaliaa Lobo Bill Unavailable [phone] Reason For Referral No Information Medications Medication SIG (Take, Route, Fr equency, Duration) Notes Start Date End Date Status Aspir-Low 81 MG 1 tablet Orally Once a day for 30 day(s) Active Viagra 25 MG 1 tablet as needed Orally prn Active Immunizations Vaccine Route Administration Date Status Comme nts Influenza Unknown 09/14/2018 Administered Social History Tobacco Use: Social History Observation Description Date Details (start date - stop date) Former Smoker NA - NA Tobacco Use/Smoking Question Answer Notes Patient is a former smoker How long has it been since you last smoked? > 10 years Alcohol Screen Question Answer Notes Did you have a drink contain ing alcohol in the past year? Yes How often did you have a dri nk containing alcohol in the past year? 4 or more times a week (4 points) How many drinks did you have on a typical day when you were drinking in the past year? 1 or 2 drinks (0 point) How often did you have 6 or more drinks on one occasion in the past year? Never (0 point) Points 4 Interpretation Positive Section Notes: Nonsmoker; 2 glasses of wine with dinner Nonsmoker; 2 glasses of wine with dinner Problems Problem Type SNOMED Code ICD Code Onset Dates Problem Status W/U Status Risk Notes Problem 481984710 Encounter for screening for malignant neoplasm of colon (Z12.11) Active confirmed Problem 583706217 History of adenomatous polyp of colon (Z86.010) Active confirmed Problem [id number] Preprocedural examination (Z01.818) Active confirmed Plan Of Treatment Future Test Test Name Order Date COLONOSCOPY 04/09/2014 COLONOSCOPY 08/22/2019 Next Appt Details Provider Name:Lobo King , 04/23/2025 01:20:00 PM, [address] [facility], [address], [place], [address], Insurance Providers Payer Name Payer Address Payer Phone Subscriber Number Group Number Insured Name Patient Relationship to Insured Coverage Start Date Coverage End Date [facility] [address] [place] [phone] [id number] VALENTINO HDEZ Self - patient is the insured Medical (General) History Medical History History ICD Code Screening colonoscopy 01-12-2008--1 tubul ar adenoma removed Denies AK,DM,CVA,Lung disease,renal dise ase Colonoscopy 05/2014 with removal of 2 sma ll tubular adenomas Surgical History Surgery Date(Month/Year) Vein stripping--on the LLE
[2025-04-22 13:03] LABS: Prostate Specific Antigen 1.10 ng/mL (<0.05-4.0)
[2025-04-22 14:35] LABS: Alanine Aminotransferase 53 U/L (0-40); Albumin Level 4.5 g/dL (3.5-5.0); Alkaline Phosphatase 45 U/L (39-117); Anion Gap 12 (12-20); Aspartate Amino Transferase 38 U/L (5-37); Blood Urea Nitrogen 19 mg/dL (9-16); Calcium 9.1 mg/dL (8.4-10.2); Carbon Dioxide 27 mmol/L (22-29); Chloride 107 mmol/L (96-108); Cholesterol 114 mg/dL (<200); Estimated Glomerular Filt Rate > 60; HDL Cholesterol 36 mg/dL (>40); Potassium 4.0 mmol/L (3.3-5.1); Sodium 142 mmol/L (135-145); Total Protein 7.4 g/dL (6.5-8.0); Triglycerides 150 mg/dL (<150)
== END 2025-04-22 11:49 | disposition home or self-care (01) ==
LOC: HO.LAB 11:48
PROVIDERS: Absent Provider Internal Medicine Cardiovascular Disease; PCP Internal Medicine; Visit Provider Internal Medicine
DX: Z13.0 Encounter for screening for diseases of the blood and blood-forming organs and certain disorders involving the immune mechanism (principal); N40.0 Benign prostatic hyperplasia without lower urinary tract symptoms; N20.0 Calculus of kidney; I25.10 Atherosclerotic heart disease of native coronary artery without angina pectoris; R31.0 Gross hematuria
CPT/HCPCS: 36415; 80053; 80061; 81001; 84153; 84207; 85025

== ENCOUNTER 2025-06-04 13:07 | Outpatient (AMB) | payer OTHER, SELFPAY ==
--- NOTE | 2025-06-04 13:14 | MHC.OFFVIS ---
Vital Signs 06/04/25 13:15 Height 6 ft 2 in Weight 222 lb 10.67 oz BMI 28.6 BP 120/70 Blood Pressure Location Lt brachial Position Sitting Pulse 56 Intake Visit Reasons: 6m follow up/pre-op colonscopy Intake Note: Pre-op Colonscopy and 6 month follow-up feeling good Nurse Practical Required: No Allergies No Known Allergies (No Known Allergies*) Allergy (Verified 03/28/25 10:30) Medication List - Last Reconciled 06/04/25 by Ahmet Garcia MD aspirin (Ecotrin Low Strength) 81 mg PO DAILY epinephrine (EpiPen 2-Ralph) 0.3 mg (0.3 mL) IM Q10M PRN isosorbide mononitrate ER 30 mg PO DAILY metoprolol succinate ER (Toprol XL) 50 mg PO DAILY nitroglycerin 0.4 mg sublingual Q5M PRN rosuvastatin (Crestor) 40 mg PO DAILY tamsulosin 0.4 mg PO BEDTIME HPI Comments Details: Arnaud comes for follow-up. He is scheduled to undergo colonoscopy in near future. He has no exertional chest pain. His lightheadedness has improved with medications. Denies any prolonged palpitation irregular heartbeat. Takes all his medications. Denies any heart failure symptoms. No syncopal episodes. 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 Mother No problems noted. Social History Housing: House Comment: no count Patient Tobacco Use Status: Former Tobacco user e-Cigarette/Vaping Use: Former Use Advance Directives Date on File: 07/24/20 service: No Current occupational status: retired Cognitive needs: No Hearing needs: No Vision needs: Yes (rx glasses) Review of Systems Const Denies chills, Denies fatigue, Denies fever(s), Denies frequent falls, Denies weakness, Denies weight gain and Denies weight loss ENT Denies dizziness Card Denies chest pain, Denies leg edema, Denies lightheadedness, Denies palpitations, Denies dyspnea, Denies dyspnea on exertion, Denies orthopnea and Denies other (loss of consciousness) Resp Denies cough, Denies dyspnea and Denies dyspnea on exertion GI Denies hematochezia and Denies change in stool character Musc Denies abnormal gait, Denies muscle weakness, Denies numbness, Denies radiating pain into limb and Denies tingling Neuro Denies Abnormal speech present, Denies abnormal gait, Denies dizziness, Denies frequent falls, Denies numbness, Denies tingling and Denies weakness Endo Denies fatigue and Denies palpitations Physical Exam Vital Signs: Last Vital Signs Pulse 56 06/04/25 13:15 BP 120/70 06/04/25 13:15 BMI result Body Mass Index 28.6 Const General: cooperative, comfortable, no acute distress, alert, awake and Physically active Nutritional Appearance: average body habitus Orientation/consciousness: patient oriented x3 Limitations: no limitations HEENT Head: Yes normocephalic and Yes atraumatic Neck Neck: Yes trachea midline, Yes supple and Yes no JVD Resp Effort & Inspection: normal respiratory effort Auscultation: clear to auscultation bilaterally Cardio Jugular venous distension: no JVD Palpation: normal PMI Rate: regular rate Rhythm: regular rhythm Heart sounds: S1 normal heart sound present, S2 normal heart sound present, no click, no gallops and Murmur heart sound present systolic early Peripheral pulses: Peripheral pulses 2+ throughout GI Auscultation: normal bowel sounds Skin General skin exam: no rashes or lesions noted Neuro General: patient oriented x3 and no focal motor deficits Speech: No Abnormal speech present Extrem General: Yes no clubbing, cyanosis or edema Psych Appearance: grossly normal Office Procedures EKG Details: EKG shows normal sinus rhythm with left anterior fascicular block with moderate LVH with nonspecific ST-T changes [id number], Complete Assessment & Plan Assessment & Plan (1) CAD (coronary artery disease): Code(s): I25.10 - Atherosclerotic heart disease of [place] coronary artery without angina pectoris Category: Medical Qualifiers: Coronary Disease-Associated Artery/Lesion type: unspecified vessel or lesion type [place] vs. transplanted heart: unspecified whether [place] or transplanted heart Associated angina: unspecified whether angina present Qualified Code(s): I25.10 - Atherosclerotic heart disease of [place] coronary artery without angina pectoris Plan: CAD with moderate coronary artery disease, two-vessel without any symptoms of angina with overall good functional capacity. Continue current aggressive medical therapy including aspirin. Continue dual antianginal therapy which has helped his symptoms of exertional chest discomfort. Continue rosuvastatin at 40 mg target goal LDL less than 70 mg/dL. Management of coronary atherosclerosis was discussed in details. No further workup is indicated. (2) Preoperative cardiovascular examination: Code(s): Z01.810 - Encounter for preprocedural cardiovascular examination Plan: Preoperative cardiovascular risk stratification for colonoscopy. This is considered low to intermediate risk procedure. This has been done under sedation. Patient is currently optimized to undergo this procedure with low risk for perioperative cardiovascular morbidity mortality. Continue all medications except for aspirin which is at GI discretion. Resume aspirin as soon as possible after the procedure. Will follow up in the clinic in 1 year's time, sooner p.r.n.. Thank you for allowing me to partake in his care Coding Level of Care Code Est Pt Level 4 (85724) Complex EM visit Add On G2211 Diagnoses Coronary artery disease, unspecified vessel or lesion type, unspecified whether angina present, unspecified whether [place] or transplanted heart I25.10 Coronary Disease-Associated Artery/Lesion type: unspecified vessel or lesion type [place] vs. transplanted heart: unspecified whether [place] or transplanted heart Associated angina: unspecified whether angina present Preoperative cardiovascular examination Z01.810 CPT Codes EKG - CPT: 19023-[id number], Complete ([id number])
[2025-06-04 13:15] VITALS: BP 120/70; PULSE 56; BMI 28.6
--- OUTSIDE RECORDS SUMMARY | 2025-06-04 14:17 | XMS_ITS | Clinical Summary ---
Author Organization [facility] ity Address [address] [place] [address] Care Team Providers Care Hammer Adjuster Name Role Phone Parish Meyer MD Primary Care Provider [phone] Social History Tobacco Use Types Packs/Day Years [...] Vaccine ( - 2023-2 5 season) 2024 Depression Screening 10/17/2024 Influenza Vaccine (#1) 2025 RSV Immunization Adult [...] age to complete this topic Care Teams Hammer Adjuster Relationship Specialty Start Date End Date Parish Meyer MD [address] [place] [address] Dr Glendy MA PCP - General Internal Medicine 09/24/19
--- OUTSIDE RECORDS SUMMARY | 2025-06-04 14:17 | XMS_ITS | Patient Health Record ---
Author Organization [facility] Address [address] [place] [address] Care Team Providers Care Supervisor Reclamation Name Role Phone Noris Carr M.D. Primary Care Provider Unavail Lobo Metcalf Unavailable [phone] Allergies No Known Allergies Reason For Referral No Information Medications Medication SIG (Take, Route, Frequency, Duration) Notes Start Date End Date Status Isosorbide Mononitrate ER 30 MG Oral for 30 Days Active Aspir-Low 81 MG 1 tablet Orally Once a day for 30 day(s) Active Rosuvastatin Calcium 40 MG TAKE 1 TABLET BY MOUTH EVERY DAY Oral for 90 Days Active Nitroglycerin 0.[address] 1 TAB UNDER T ONGUE EVERY 5 MINUTES NEEDED FOR CHEST PAIN MAX 3 DOSES PER EPISODE Sublingual for 30 Days Active Metoprolol Succinate ER 50 MG Oral for 90 Days Active Tamsulosin HCl 0.4 MG Oral for 10 Days Active Vitamin B-6 50 MG TAKE 1 TABLET BY JOSE ALFREDO TH DAILY Oral for 30 Days Active Immunizations Vaccine Route Administration Date Status Comme nts Influenza Unknown 09/14/2018 Administered Influenza Unknown 08/07/2024 Administered Social History Tobacco Use: Social History [...] Problem Status W/U Status Risk Notes Problem [id number] Encounter for screening for malignant neoplasm of colon (Z12.11) Active confirmed Problem 578931666 History of adenomatous polyp of colon (Z86.010) Active confirmed Problem 605742768136682 Preprocedural examination (Z01.818) Active confirmed Problem Long-term current use of aspirin (691363147770751) Aspirin long-term use (Z79.82) Active confirmed Vital Signs Temperature 99.2 degrees Fahrenheit 04/23/2025 Blood pressure diastolic 01 mm Hg 04/23/2025 Height 74 in 04/23/2025 Blood pressure systolic 001 mm Hg 04/23/2025 Weight 221.4 lbs 04/23/2025 BMI 28.42 kg/m2 04/23/2025 Procedures Procedure Date Ordered Date Performed Result Body Sit e COLONOSCOPY 04/23/2025 N/A Encounters Encounter Location Date Provider Diagnosis [facility] [address] [place] [phone] 04/23/2025 Lobo King History of adenomato us polyp of colon Z86.010 ; Preprocedural examination Z01.818 ; Encounter for screening for malignant neoplasm of colon Z12.11 and Aspirin long-term use Z79.82 [facility] [address] [place] [phone] 04/23/2025 Lobo King Assessments Encounter Date Diagnosis (ICD Code) Assessment Notes Treatment Notes Treatment Clinical Notes Section Notes 04/23/2025 History of adenomatous polyp of colon (ICD-10 - Z86.010) Overall, Valentino appears quite well. He is not having any new or worrisome GI complaints. I did recommend a follow-up colonoscopy for further screening given his previous history of tubular adenomas and his last colonoscopy being over 5 years ago. We did review the rationale for that in regard to colon cancer prevention. Full consent has been obtained for this, including risks of bleeding and perforation. The procedure will be done with monitored anesthesia care. He was advised not to use any aspirin on the morning of the procedure. Valentino was comfortable with this plan. Thank you again for allowing me to participate in Valentino's care. I shall continue to keep you advised of his progress. 04/23/2025 Preprocedural examination (ICD-10 - Z01.818) Overall, Valentino appears quite well. He is not having any new or worrisome GI complaints. I did recommend a follow-up colonoscopy for further screening given his previous history of tubular adenomas and his last colonoscopy being over 5 years ago. We did review the rationale for that in regard to colon cancer prevention. Full consent has been obtained for this, including risks of bleeding and perforation. The procedure will be done with monitored anesthesia care. He was advised not to use any aspirin on the morning of the procedure. Valentino was comfortable with this plan. Thank you again for allowing me to participate in Valentino's care. I shall continue to keep you advised of his progress. 04/23/2025 Encounter for screening for malignant neoplasm of colon (ICD-10 - Z12.11) Overall, Valentino appears quite well. He is not having any new or worrisome GI complaints. I did recommend a follow-up colonoscopy for further screening given his previous history of tubular adenomas and his last colonoscopy being over 5 years ago. We did review the rationale for that in regard to colon cancer prevention. Full consent has been obtained for this, including risks of bleeding and perforation. The procedure will be done with monitored anesthesia care. He was advised not to use any aspirin on the morning of the procedure. Valentino was comfortable with this plan. Thank you again for allowing me to participate in Valentino's care. I shall continue to keep you advised of his progress. 04/23/2025 Aspirin long-term use (ICD-10 - Z79.82) Overall, Valentino appears quite well. He is not having any new or worrisome GI complaints. I did recommend a follow-up colonoscopy for further screening given his previous history of tubular adenomas and his last colonoscopy being over 5 years ago. We did review the rationale for that in regard to colon cancer prevention. Full consent has been obtained for this, including risks of bleeding and perforation. The procedure will be done with monitored anesthesia care. He was advised not to use any aspirin on the morning of the procedure. Valentino was comfortable with this plan. Thank you again for allowing me to participate in Valentino's care. I shall continue to keep you advised of his progress. Plan Of Treatment Pending Test Test Name Order Date COLONOSCOPY 04/23/2025 Future Test Test Name Order Date COLONOSCOPY 04/09/2014 COLONOSCOPY 08/22/2019 Next Appt Details Provider Name:Lobo King , 07/17/2025 10:30:00 AM, [address] [place] [address] , [place], [place], [phone], Insurance Providers Payer Name Payer Address Payer Phone Subscriber Number Group Number Insured Name Patient Relationship to Insured Coverage Start Date Coverage End Date [facility] [address] [place] [phone] [id number] VALENTINO HDEZ Self - patient is the insured Medical (General) History Medical History History ICD Code Screening colonoscopy 01-12-2008--1 tubul ar adenoma removed Denies [place],DM,CVA,Lung disease,renal dise ase Colonoscopy 05/2014 with removal of 2 sma ll tubular adenomas Sees Dr. Garcia for CAD-cardiac cath with nonocclusive CAD--no stents Kidney stones Colonoscopy 11/2019 with 1 small hyperpla stic polyp removed Diverticulitis with a colove sical fistula in 2018--sees Dr. Cuello---no surgery was needed hypertension hyperlipidemia Surgical History Surgery Date(Month/Year) Vein stripping--on the LLE
== END 2025-06-04 14:21 | disposition home or self-care (01) ==
LOC: HO.HCS 13:08
PROVIDERS: PCP Internal Medicine; Visit Provider Internal Medicine Cardiovascular Disease
DX: I25.10 Atherosclerotic heart disease of native coronary artery without angina pectoris (principal); Z01.810 Encounter for preprocedural cardiovascular examination
CPT/HCPCS: 93010; 99214; G2211

== ENCOUNTER → 2025-06-04 13:07 | Outpatient (BNVA) | payer OTHER, SELFPAY | PROVIDERS: PCP Internal Medicine; Visit Provider Internal Medicine Cardiovascular Disease | DX: Z01.810 Encounter for preprocedural cardiovascular examination (principal) | CPT/HCPCS: 93005 ==

== ENCOUNTER 2025-07-17 08:54 | Day surgery (SDC) | payer OTHER, SELFPAY ==
--- OUTSIDE RECORDS SUMMARY | 2025-07-04 14:25 | XMS_ITS | Clinical Summary ---
Author Organization [facility] Address [address] [place] [address] Care Team Providers Care Fish Cutter Name Role Phone Parish Meyer MD Primary Care Provider [phone] Social History Tobacco Use Types Packs/Day Years [...] 02/01/2004 Zoster Vaccines (1 of 2) 02/01/2004 Depression Screening 10/17/2024 COVID-19 Vaccine (1 - 2023-2 5 season) 2025 Influenza Vaccine (#1) 2025 RSV Immunization Adult [...] age to complete this topic Care Teams Fish Cutter Relationship Specialty Start Date End Date Parish Meyer MD [address] [place] [address] Dr Glendy [place] PCP - General Internal Medicine 09/24/19
[2025-07-15 14:07] VITALS: BMI 28.5
[2025-07-17 09:31] VITALS: BP 125/74; PULSE 56; RESP 18; TEMP 36.6; O2SAT 97; BMI 28.2
[2025-07-17] MEDS: Lactated Ringers 1,000 ML 100 ML IVCONT (09:54)
--- NOTE | 2025-07-17 10:10 | HO.ANESPROP2 ---
Documented by User: Ynes Glez NP 07/16/25 09:31 HPI - Anesthesia Eval Consult details Narrative: 70 yr old male for colonoscopy Moderate CAD: Per [facility] cardiology clearance visit 05/2025 feels well without anginal symptoms -Pt is considered low to intermediate risk procedure. This has been done under sedation. Patient is currently optimized to undergo this procedure with low risk for perioperative cardiovascular morbidity mortality. 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 Mother No problems noted. Surgical History Surgical History Hx of vein stripping Hx of cardiac catheterization History of colonoscopy (~11/26/19) Social History Social History Housing: House Are you a primary rental boats caretaker to a significant other at home: No Do you presently have visiting nurse or other home services: No Comment: no count Patient Tobacco Use Status: Former Tobacco user e-Cigarette/Vaping Use: Former Use Use of substances other than those prescribed or required for medical reasons: No Have you been hit, kicked, punched, or otherwise hurt by someone within the past year? If so, by whom?: No Are you DNR?: No Advance Directives: No Advance Directives Information Provided: Yes Advance Directives Date on File: 07/24/20 Poor oral hygiene: No service: No Current occupational status: retired Cognitive needs: No Hearing needs: No Vision needs: Yes (rx glasses) Meds Allergies Allergy/AdvReac Type Severity Reaction Status Date / Time No Known Allergies (No Known Allergy Verified 07/17/25 09:14 Allergies*) Home Medications ?Medication ?Instructions ?Recorded ?Confirmed ?Last Taken ?Type pyridoxine (vitamin B6) 50 mg 50 mg PO DAILY 07/15/25 07/17/25 Unknown History capsule (Vitamin B-6) Exam Height,Weight and Vital Signs: Height 6 ft 2 in Weight 100.698 kg Pertinent Lab Results Pertinent Lab Results: Laboratory Tests 04/22/25 12:06 WBC 7.9 RBC 4.56 L Hct 42.4 Plt Count 198 Sodium 142 Potassium 4.0 BUN 19 H Creatinine 1.04 Narrative Narrative: EKG 05/2025 Sinus andrew with sinus arrhythmia, rate 56 Left anterior fasicular block Moderate voltage criteria for LVH Documented by User: Jane De Guzman DO 07/17/25 10:11 [facility] Past Medical History Medical History HLD (hyperlipidemia) HTN (hypertension) History of diverticulitis (~2018) Hx of renal calculi CAD (coronary artery disease) 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 Mother No problems noted. Family history of problems with anesthesia: No Surgical History Surgical History Hx of vein stripping Hx of cardiac catheterization History of colonoscopy (~11/26/19) History of Problems with Anesthesia: No Social History Social History Housing: House Are you a primary rental boats caretaker to a significant other at home: No Do you presently have visiting nurse or other home services: No Comment: no count Patient Tobacco Use Status: Former Tobacco user e-Cigarette/Vaping Use: Former Use Use of substances other than those prescribed or required for medical reasons: No Have you been hit, kicked, punched, or otherwise hurt by someone within the past year? If so, by whom?: No Are you DNR?: No Advance Directives: No Advance Directives Information Provided: Yes Advance Directives Date on File: 07/24/20 Poor oral hygiene: No service: No Current occupational status: retired Cognitive needs: No Hearing needs: No Vision needs: Yes (rx glasses) Meds Allergies Allergy/AdvReac Type Severity Reaction Status Date / Time No Known Allergies (No Known Allergy Verified 07/17/25 09:14 Allergies*) Home Medications ?Medication ?Instructions ?Recorded ?Confirmed ?Last Taken ?Type pyridoxine (vitamin B6) 50 mg 50 mg PO DAILY 07/15/25 07/17/25 Unknown History capsule (Vitamin B-6) Exam Exam Date and Time: 07/17/25 1010 Height,Weight and Vital Signs: Height 6 ft 2 in Weight 100.698 kg Vital Signs Temperature 97.9 F 07/17/25 09:31 Pulse Rate 56 07/17/25 09:31 Respiratory Rate 18 07/17/25 09:31 Blood Pressure 125/74 07/17/25 09:31 Pulse Oximetry 97 07/17/25 09:31 Oxygen Delivery Method Room Air 07/17/25 09:31 Temperature 97.9 F 07/17/25 09:31 Pulse Rate 56 07/17/25 09:31 Respiratory Rate 18 07/17/25 09:31 Blood Pressure 125/74 07/17/25 09:31 Pulse Oximetry 97 07/17/25 09:31 Oxygen Delivery Method Room Air 07/17/25 09:31 Airway Mallampati Class: II TM Dist: >3cm Neck ROM: Full Loose/Missing/Broken Teeth: No (patient denies any loose or broken teeth) Heart: S1S2 Lungs: CTAB Assessment and Plan Assessment Anesthesia Assessment: Anesthesia Plan Discussed and Chart Reviewed Final Anesthetic Review Family History of Problems with Anesthesia: No History of Problems with Anesthesia: No NPO: Yes ASA Class: II Final Preanesthetic Review: No Changes in Pt Med Stat, Meds/Allgs Chart Reviewed, Consent Obtained/Reviewed and Anes Risks/Benef Reviewed Patient Risk: Low Procedure Risk: Low Anesthetic Plan Anesthetic Plan: MAC: and Agree w/ Assess. and Plan Disposition: Standard PACU
[2025-07-17 12:40] VITALS: BP 98/59; PULSE 51; RESP 16; TEMP 37; O2SAT 95
[2025-07-17 12:45] VITALS: BP 112/64; PULSE 57; RESP 16; O2SAT 95
--- NOTE | 2025-07-17 12:46 | PM.OP ---
Brief Operative Note Date of Service: 07/17/25 Pre-op diagnosis: Screening Post-op diagnosis: other (Polyps) Procedure: Colonoscopy to the cecum and TI with cold snare polypectomies, placement of Resolution clip on sites at the cecum and 20cm, and bx/removal of polyp Surgeon: Lobo King MD Anesthesia: MAC Was an Desktop Publishing Specialist used for this Procedure?: No Estimated blood loss (mL): 2.0 Pathology: other (A. Ascending colon polyps B. Cecal polyp C. Polyp at 20cm) Condition: stable Disposition: PACU
[2025-07-17 13:00] VITALS: BP 128/57; PULSE 47; RESP 16; O2SAT 96
[2025-07-17 13:15] VITALS: BP 146/78; PULSE 52; RESP 16; TEMP 37; O2SAT 96
--- NOTE | 2025-07-17 14:10 | OP_ITS ---
DATE OF SERVICE: 07/17/2025 SURGEON: Lobo King MD INDICATIONS: The patient presents for evaluation of colorectal cancer screening and personal history of tubular adenoma of the colon. Full consent has been obtained from him for this, including risks of bleeding and perforation. PREOPERATIVE DIAGNOSIS: POSTOPERATIVE DIAGNOSIS: PROCEDURE PERFORMED: Colonoscopy to the cecum and terminal ileum with cold snare polypectomies, biopsy and removal of polyp, and placement of 2 resolution clips. ESTIMATED BLOOD LOSS: COMPLICATIONS: ANESTHESIA: Medication used, monitored anesthesia care. ASSISTANTS: SPECIMENS: PREOPERATIVE DIAGNOSES: Colorectal cancer screening and personal history of tubular adenoma of the colon. POSTOPERATIVE DIAGNOSES: Colorectal cancer screening and personal history of tubular adenoma of the colon, colon polyps, diverticulosis, and internal hemorrhoids. DESCRIPTION OF PROCEDURE: The patient was placed in the left lateral decubitus position. The digital rectal exam revealed no abnormalities. The Olympus video pediatric colonoscope was entered into the rectum and advanced to the cecum. Once in the cecum, after a lot of irrigation and suctioning, I was able to visualize cecal pouch well. The appendiceal orifice appeared normal. The terminal ileum was cannulated and appeared normal as well. The scope was withdrawn back in the colon. The entire cecum was well visualized. In the cecum, near the appendiceal orifice, was an approximately 6 to 8 mm grossly adenomatous polyp, which was removed by cold snare polypectomy and recovered by suction. The polypectomy site appeared clean, without any sign of residual polyp nor significant bleeding. I did place a single resolution clip on the polypectomy site with good deployment and good hemostasis. The scope was then slowly withdrawn assessing all mucosal surfaces carefully. Preparation throughout the colon was good, but there was still a fair amount of liquid stool, which had to be irrigated and suctioned away as best as possible. In the proximal ascending colon was a flat 3 mm polyp, which was biopsied and completely removed with a cold biopsy forceps. In the more distal ascending colon was an approximately 6 mm polyp, which was removed by cold snare polypectomy and recovered by suction. The polypectomy site appeared clean, without any sign of residual polyp nor significant bleeding. At 20 cm was an approximately 8 mm polyp, which was removed by cold snare polypectomy, recovered by suction. The polypectomy site appeared clean, without any sign of residual polyp nor bleeding. I did place a single resolution clip onto the polypectomy site with good deployment and good hemostasis. I did not visualize any other polyps, colitis, or angiodysplasia. There was a moderate amount of sigmoid diverticulosis. In the rectum, scope was retroflexed visualizing internal hemorrhoids, but no other pathology. The rectal mucosa appeared normal, although this was somewhat obscured by stool which could not really be cleared or suctioned away. The scope was then straightened and withdrawn from the patient. He tolerated the procedure well and was returned to the recovery area in stable condition. IMPRESSION: 1. Colon polyps. 2. Diverticulosis. 3. Internal hemorrhoids. PLAN: The results of the pathology will be checked. Given the findings of the polyps and the somewhat limited prep, I would recommend a repeat colonoscopy in 3 years with a 2-day prep. He was advised to resume his aspirin in 48 hours. He was advised not to use any NSAIDs for at least a week. MD LEN Bradford/MALLORY / [id number] MTDD
== END 2025-07-17 13:50 | disposition home or self-care (01) ==
PROVIDERS: PCP Internal Medicine; Visit Provider Internal Medicine
PROC: 0DJD8ZZ Inspection of Lower Intestinal Tract, Via Natural or Artificial Opening Endoscopic (ICD-10-PCS; CPT 45378; principal; 2025-07-17 10:20)
DX: Z12.11 Encounter for screening for malignant neoplasm of colon (principal); D12.0 Benign neoplasm of cecum; D12.2 Benign neoplasm of ascending colon; K63.5 Polyp of colon; K57.30 Diverticulosis of large intestine without perforation or abscess without bleeding; K64.8 Other hemorrhoids; Z86.0101 Personal history of adenomatous and serrated colon polyps; Z86.0102 Personal history of hyperplastic colon polyps; I10 Essential (primary) hypertension; I25.10 Atherosclerotic heart disease of native coronary artery without angina pectoris; Z79.82 Long term (current) use of aspirin; Z79.899 Other long term (current) drug therapy
CPT/HCPCS: 45385; 45380; 88305; J2704

== ENCOUNTER 2025-08-05 13:41 | Outpatient (REF) | payer OTHER, SELFPAY ==
--- OUTSIDE RECORDS SUMMARY | 2025-07-17 06:30 | XMS_ITS ---
Author Organization [facility] Address [address] [place] [phone] Care Team Providers Care Retail Management Trainee Name Role Phone Noris Carr M.D. Primary Care Provider Lobo Lopez [phone] REASON FOR VISIT SCREENING COLON Encounters Encounter Location Date Provider Diagnosis [facility] [place] [address] [place] [phone] 07/17/2025 Lobo King Plan Of Treatment No Information Progress Notes * AIDEEMIRIAM DARLENEALEXANDRAODOB:1955 (70 yo M)Acc No.[id number]:07/17/2025 COLON WITH MAC Patient: VALENTINO PURCELL Provider: Janice King MD :1955 A ge:70 Y S ex:Male Date:07/17/2025 Address:[facility] [address] [facility] Pcp:Noris Carr M.D. Subjective: * Chief Complaints: * 1 . SCREENING COLON. * Medical History: Objective: * Vitals: Assessment: Plan: * Treatment: * * The named appointment provid er may or may not be the originator of this progress note, and it is not deemed complete until electronically signed by the appointment provider. Sign off status: Pending * Provider: Janice King MD Date: Generated for Printi ng/Faxing/eTransmitting on: 04:51 PM EDT
--- NOTE | ~2025-08-05 | US_ITS ---
EXAMINATION: US RETROPERITONEAL LIMITED (RENAL ONLY) CLINICAL INFORMATION: Calculus of kidney. COMPARISON: CT abdomen and pelvis 12/04/2024. TECHNIQUE: Real-time imaging of the kidneys. FINDINGS: RIGHT KIDNEY: 12.8 x 6.8 x 6.2 cm (SAG x AP x TRV). The kidney is normal in size, contour, and echogenicity. Renal cortical thickness is normal. No suspicious focal parenchymal lesions. No hydronephrosis. There is an upper pole calculus measuring 8 x 7 mm. There is a mid pole calculus versus parenchymal calcification measuring 12 x 8 x 10 mm. LEFT KIDNEY: 13.6 x 6.0 x 5.8 cm (SAG x AP x TRV). The kidney is normal in size, contour, and echogenicity. Renal cortical thickness is normal. No calculi or focal parenchymal lesions. No hydronephrosis. US/US renal BI IMPRESSION: 1. Nonobstructing right nephrolithiasis. 2. Normal left kidney. Electronically signed by: Timo Zambrano MD 08/05/2025 03:27 PM EDT
--- OUTSIDE RECORDS SUMMARY | 2025-08-05 16:51 | XMS_ITS | Patient Health Record ---
Author Organization [facility] Address [address] [place] [address] Care Team Providers Care Plastic Machine Operator Name Role Phone Noris Carr M.D. Primary Care Provider Thalia oliva Lobo King Miko [phone] Allergies No Known Allergies Results Component Value Reference Range Notes Pathology (Not yet reviewed by provider) Interpretation: Performing Lab:[facility], [address] [place] [phone] Notes/Report: Reason For Referral No Information Medications Medication SIG (Take, Route, Frequency, Duration) Notes Start Date End Date Status Isosorbide Mononitrate ER 30 MG Oral; Duration: 30 Days Acti ve Aspir-Low 81 MG 1 tablet Orally Once a day; Duration: 30 day(s) Active Rosuvastatin Calcium 40 MG TAKE 1 TABLET BY MOUTH EVERY DAY Oral; Duration: 90 Days Active Nitroglycerin 0.[address] 1 TAB UNDER T ONGUE EVERY 5 MINUTES NEEDED FOR CHEST PAIN MAX 3 DOSES PER EPISODE Sublingual; Duration: 30 Days Active Metoprolol Succinate ER 50 MG Oral; Duration: 90 Days Acti ve Tamsulosin HCl 0.4 MG Oral; Duration: 10 Days Active Vitamin B-6 50 MG TAKE 1 TABLET BY JOSE ALFREDO TH DAILY Oral; Duration: 30 Days Active Immunizations Vaccine Route Administration [...] Problem Status W/U Status Risk Notes Problem Screening for malignant neoplasm of colon (077427158) Encounter for screening for malignant neoplasm of colon (Z12.11) Active confirmed Problem History of adenomatous polyp of colon (453476239) History of adenomatous polyp of colon (Z86.010) Active confirmed Problem Preprocedural examination (356172306517437) Preprocedural examination (Z01.818) Active confirmed Problem Long-term current use of aspirin (364564007108485) Aspirin long-term use (Z79.82) Active confirmed Vital Signs Temperature 99.2 degrees Fahrenheit 04/23/2025 Blood pressure diastolic 01 mm Hg 04/23/2025 Height 74 in 04/23/2025 Blood pressure systolic 001 mm Hg 04/23/2025 Weight 221.4 lbs 04/23/2025 BMI 28.42 kg/m2 04/23/2025 Procedures Procedure Date Ordered Date Performed Result Body Sit e COLONOSCOPY 04/23/2025 N/A Encounters Encounter Location Date Provider Diagnosis [facility] [place] [address] [place] [phone] 07/17/2025 Lobo King [facility] [address] [place] [phone] 04/23/2025 Lobo King History of adenomato us polyp of colon Z86.010 ; Preprocedural examination Z01.818 ; Encounter for screening for malignant neoplasm of colon Z12.11 and Aspirin long-term use Z79.82 [facility] [address] [place] [phone] 04/23/2025 Lobo King Assessments Encounter Date Diagnosis [...] [facility]. I shall continue to keep you [...] again for allowing me to participate in Karolina's care. I shall continue to keep you [...] Test Test Name Order Date COLONOSCOPY 04/23/2025 Pathology 07/17/2025 Future Test Test Name Order Date COLONOSCOPY 04/09/2014 COLONOSCOPY 08/22/2019 Insurance Providers Payer Name Payer Address Payer Phone Subscriber Number Group Number Insured Name Patient Relationship to Insured Coverage Start Date Coverage End Date [facility] [address] [place] [phone] [id number] VALENTINO HDEZ Self - patient is the insured Medical (General) History Medical History History ICD Code Screening colonoscopy 01-12-2008--1 tubul ar adenoma removed Denies [place],DM,CVA,Lung disease,renal dise ase Colonoscopy 05/2014 with removal [...]
== END 2025-08-05 13:42 | disposition home or self-care (01) ==
LOC: HO.US 13:41
PROVIDERS: PCP Internal Medicine; Visit Provider Urology
DX: N20.0 Calculus of kidney (principal)
CPT/HCPCS: 76775

== ENCOUNTER → 2025-08-05 13:43 | Outpatient (BNV) | payer OTHER, SELFPAY | PROVIDERS: PCP Internal Medicine; Visit Provider Radiology Diagnostic Radiology | DX: N20.0 Calculus of kidney (principal) | CPT/HCPCS: 76775 ==

== ENCOUNTER 2025-08-16 11:11 | Outpatient (AMB) | payer OTHER, SELFPAY ==
--- OUTSIDE RECORDS SUMMARY | 2025-07-17 06:30 | XMS_ITS ---
Author Organization [facility] Address [address] [place] [address] Care Team Providers Care Lens Cutter Name Role Phone Noris Carr M.D. Primary Care Provider Lobo Lopez [phone] REASON FOR VISIT SCREENING COLON Encounters Encounter Location Date Provider Diagnosis [facility] [place] [address] [place] [phone] 07/17/2025 Lobo King Plan Of Treatment No Information Progress Notes * AIDEEMIRIAM DARLENEALEXANDRAODOB:1955 (70 yo M)Acc No.[id number]:07/17/2025 COLON WITH MAC Patient: VALENTINO PURCELL Provider: Janice King MD :1955 A ge:70 Y S ex:Male Date:07/17/2025 Address:[facility] [address], [facility] Pcp:Noris aCrr M.D. Subjective: * Chief Complaints: * 1 [...] MD Date: Generated for Printi ng/Faxing/eTransmitting on: 12:45 PM EDT
--- NOTE | 2025-08-16 11:18 | A.OFFVIS_ITS ---
Intake Visit Reasons: US Intake Note: Patient is present for Ultrasound Results Urology Med: Tamsulosin, Vitamin B6 Antibiotic Allergy: None Blood Thinner: Aspirin Engine Turner Required: No Accompanied by: Self / Same As Patient Allergies No Known Allergies (No Known Allergies*) Allergy (Verified 08/16/25 11:24) HPI Comments Details: Chacha is a pleasant Occitan male. He is seen for the following urologic conditions - Peyronie's disease - erectile dysfunction - nephrolithiasis Interval imaging Renal ultrasound right side question of small stones High-dose therapy 10 mg tadalafil daily with 200 mg sildenafil on demand Nephrolithiasis Initial presentation emergency room in November 2024 Stone passed with medical expulsion therapy CT with punctate stones and kidney Has been drinking iced tea Encouraged lemon water and vitamin B6 Peyronie's disease Stable disease Does not interfere with intercourse Does use PD 5 inhibitors - prior success with Viagra not effective currently - will change to tadalafil daily - prescription provided PSA 08/06 1.9, 10/07 1.6 Erectile dysfunction Inability to maintain erection Good response to tadalafil daily 10mg with 20mg on demand Prior colovesical fistula Presentation with gross hematuria Underwent repair [facility] Medical History HLD (hyperlipidemia) HTN (hypertension) History of diverticulitis (~2018) Hx of renal calculi CAD (coronary artery disease) 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 Mother No problems noted. Social History Housing: House Are you a primary career development engineer to a significant other at home: No Do you presently have visiting nurse or other home services: No Comment: no count Patient Tobacco Use Status: Former Tobacco user e-Cigarette/Vaping Use: Former Use Advance Directives Date on File: 07/24/20 service: No Current occupational status: retired Cognitive needs: No Hearing needs: No Vision needs: Yes (rx glasses) Results AMB Urinalysis, Automated UA Leukoctes 0 Kj/uL Last Edit by Stacy Burkett Isabela on 08/16/25 11:31 UA Nitrite Negative Last Edit by Stacy Burkett A on 08/16/25 11:31 UA Urobilinogen 0.2 mg/dL Last Edit by Stacy Burkett A on 08/16/25 11:3 1 UA Protein 300 mg/dL Last Edit by Stacy Burkett A on 08/16/25 11:31 UA pH 6.0 Last Edit by Stacy Burkett A on 08/16/25 11:31 UA Blood 1 Peter/uL Last Edit by Stacy Burkett [facility] on 08/16/25 11:31 UA Specific Lynndyl 1.030 Last Edit by Stacy Burkett [facility] on 08/16/25 11: 31 UA Ketone Negative Last Edit by Stacy Burkett [facility] on 08/16/25 11:31 UA Bilirubin 0 mg/dL Last Edit by Stacy Burkett A on 08/16/25 11:31 UA Glucose 0 mg/dL Last Edit by Stacy Burkett [facility] on 08/16/25 11:31 Results Reviewed Results Reviewed: Laboratory Last Values Urine pH (Auto) 6.0 08/16/25 11:25 Specific Lynndyl (Auto) 1.030 08/16/25 11:25 Urine Protein (Auto) 300 mg/dL 08/16/25 11:25 Glucose (UA)(Auto) 0 mg/dL 08/16/25 11:25 Urine Ketones (Auto) Negative 08/16/25 11:25 Urine Blood (Auto) 1 Peter/uL 08/16/25 11:25 Urine Nitrite (Auto) Negative 08/16/25 11:25 Urine Bilirubin (Auto) 0 mg/dL 08/16/25 11:25 Urine Urobilinogen (Auto) 0.2 mg/dL 08/16/25 11:25 Leukocyte Esterase (Auto) 0 Kj/uL 08/16/25 11:25 Assessment & Plan Assessment & Plan Orders: Orders AMB Urinalysis Automated Today Z13.9 - Encounter for screening, unspecified XR KUB 6 Months N20.0 - Calculus of kidney Coding
--- OUTSIDE RECORDS SUMMARY | 2025-08-16 12:45 | XMS_ITS | Clinical Summary ---
Author Organization [facility] ity Address [address] [place] [address] Care Team Providers Care Otr Refrigerated Cdl Truck Driver Name Role Phone Parish Meyer MD Primary Care Provider [phone] Social History Tobacco Use Types Packs/Day Years [...] age to complete this topic Care Teams Otr Refrigerated Cdl Truck Driver Relationship Specialty Start Date End Date Parish Meyer MD [address] [place] [address] Dr Glendy [place] PCP - General Internal Medicine 09/24/19
--- OUTSIDE RECORDS SUMMARY | 2025-08-16 12:45 | XMS_ITS | Patient Health Record ---
Author Organization [facility] Address [address] [place] [address] Care Team Providers Care Alarm Field Technician Name Role Phone Noris Carr M.D. Primary Care Provider Thalia oliva Lobo King Miko [phone] Allergies No Known Allergies Results Component Value Reference Range Notes Pathology (Not yet reviewed by provider) Interpretation: Performing Lab:[facility], [address] [place] [id number] Notes/Report: Reason For Referral No Information Medications [...] Problem Screening for malignant neoplasm of colon (173728414) Encounter for screening for malignant neoplasm of colon (Z12.11) Active confirmed Problem History of adenomatous polyp of colon (435472687) History of adenomatous polyp of colon (Z86.010) Active confirmed Problem Preprocedural examination (656545406588049) Preprocedural examination (Z01.818) Active confirmed Problem Long-term current use of aspirin (848883721399906) Aspirin long-term use (Z79.82) Active confirmed Vital Signs Temperature 99.2 degrees Fahrenheit 04/23/2025 Blood pressure diastolic 01 mm Hg 04/23/2025 Height 74 in 04/23/2025 Blood pressure systolic 001 mm Hg 04/23/2025 Weight 221.4 lbs 04/23/2025 BMI 28.42 kg/m2 04/23/2025 Procedures Procedure Date Ordered Date Performed Result Body Sit e COLONOSCOPY 04/23/2025 N/A Encounters Encounter Location Date Provider Diagnosis [facility] Outpatient [address] [place] [id number] 07/17/2025 Lobo King [facility] [address] [place] [phone] 04/23/2025 Lobo King History of adenomato us polyp of colon Z86.010 ; Preprocedural examination Z01.818 ; Encounter for screening for malignant neoplasm of colon Z12.11 and Aspirin long-term use Z79.82 [facility] [address] [place] [phone] 04/23/2025 Lobo King Assessments Encounter Date Diagnosis [...] again for allowing me to participate in [facility]'s care. I shall continue to keep you [...] Insured Coverage Start Date Coverage End Date [facility] [address] [place] [address] [id number] VALENTINO HDEZ Self - patient is the insured Medical (General) History Medical History History ICD Code Screening colonoscopy 01-12-2008--1 tubul ar adenoma removed Denies [place],DM,CVA,Lung disease,renal dise ase Colonoscopy 05/2014 with removal [...]
== END 2025-08-16 11:46 | disposition home or self-care (01) ==
LOC: HO.HUSH 11:11
PROVIDERS: PCP Internal Medicine; Visit Provider Urology
DX: Z13.9 Encounter for screening, unspecified (principal)

== ENCOUNTER → 2025-08-16 11:11 | Outpatient (BNVA) | payer OTHER, SELFPAY | PROVIDERS: PCP Internal Medicine; Visit Provider Urology | DX: N20.0 Calculus of kidney (principal) | CPT/HCPCS: 81003 ==